=== PATIENT | female | born 1995 | race Caucasian/White ===

== ENCOUNTER 2021-12-06 13:38 | Emergency (ER) | payer MEDICAID, SELFPAY ==
[2021-12-06 14:20] VITALS: BP 125/68; PULSE 90; RESP 16; TEMP 36.8; O2SAT 100; BMI 27.1
--- NOTE | 2021-12-06 14:48 | ED.ABDPAIN ---
HPI - Abdominal Pain General Chief Complaint: Abdominal Pain Stated Complaint: Abdominal Cramping Time Seen by Provider: 12/06/21 14:18 History of Present Illness HPI narrative: This 26-year-old female comes in with left-sided abdominal pain that began today. She had some more mild pain and then it eased up and then her pain was very severe such that she had to leave work. She is almost 6 weeks . She denies having any uterine cramping or vaginal discharge. She did have a miscarriage 3 months ago. She denies any personal history of kidney stones but states that she has strong family history with most members of her family having them. She does report some flank pain on the left side. Her abdominal pain does extend more toward her umbilical area. She had some nausea but no vomiting. The nausea is also present as she is . Related Data Home Medications Medication Instructions Recorded Confirmed ctagbwwl-lej-Wk-FA 1 mg 1 tab PO DAILY 12/06/21 12/06/21 tablet Previous Rx's Medication Instructions Recorded ketorolac 10 mg tablet 10 mg PO TID 5 Days #15 tab 12/06/21 pantoprazole 20 mg tablet,delayed 20 mg PO DAILY #20 tab 12/06/21 release (Protonix) Allergies Allergy/AdvReac Type Severity Reaction Status Date / Time No Known Drug Allergies Allergy Verified 12/06/21 14:16 Review of Systems Status of ROS Reports: 10 or more systems reviewed and unremarkable except as noted in History and below Narrative Constitutional: No fevers, no weight gain or loss. Eyes: No discharge. No vision changes. HENT: No congestion, no sore throat, no ear pain. Cardiovascular: No chest pain, no palpitations. Respiratory: No shortness of breath, no wheezes, no cough. Gastrointestinal: No vomiting, no diarrhea. Abdominal pain as described above Genitourinary: No dysuria, no hematuria. Musculoskeletal: Normal range of motion. Skin: No rashes, no pruritis. Neurological: No dizziness, weakness, sensory change, speech change. Endo/Heme/Allergies: No bruising or bleeding. No polydipsia. Pysch: no suicidality, no anxiety, no insomnia. All other systems reviewed and are negative. Exam Narrative: Exam Narrative: Constitutional: Well-developed, well-nourished, no acute distress. HEENT: Normocephalic, atraumatic. Neck: Normal range of motion. Nontender. Supple. Heart: Regular. No murmurs. Normal rate. Intact distal pulses. Lungs: Clear to auscultation. No chest discomfort. No wheezes, rhonchi, or rales. Abdomen: Normal bowel sounds. Tenderness on the left side of the abdomen. The pain is somewhat reproducible with palpation. No rebound tenderness. She has some left flank pain also. Genitalia: Deferred. Back: No midline tenderness. Normal range of motion. Extremities: Normal range of motion. No injury. Skin: Intact. No rash. Warm. No erythema or pallor. Neurologic: No altered sensation. No weakness. Alert and oriented. Psychiatric: No suicidality. No anxiety or depression. No insomnia. Nursing notes and vitals signs are reviewed. Const: Vital Signs, click to edit/add: Vital Signs - 24 hr 12/06/21 14:20 Temperature 98.2 F Pulse Rate [Pulse Oximeter] 90 Respiratory Rate 16 [facility] 125/68 Pulse Oximetry 100 Course Vital Signs Vital signs: Initial Vital Signs Temperature 98.2 F 12/06/21 14:20 Temperature Source Temporal Artery Scan 12/06/21 14:20 Pulse Rate 90 12/06/21 14:20 Pulse Rhythm 12/06/21 14:20 Pulse Strength 3+ Normal 12/06/21 14:20 Respiratory Rate 16 12/06/21 14:20 Blood Pressure 125/68 12/06/21 14:20 Blood Pressure Mean 87 12/06/21 14:20 Blood Pressure Position Sitting 12/06/21 14:20 Pulse Oximetry 100 12/06/21 14:20 Oxygen Delivery Method 12/06/21 14:20 Vital Signs Temperature 98.2 F 12/06/21 14:20 Pulse Rate 90 12/06/21 14:20 Respiratory Rate 16 12/06/21 14:20 Blood Pressure 125/68 12/06/21 14:20 Pulse Oximetry 100 12/06/21 14:20 Temperature 98.2 F 12/06/21 14:20 Pulse Rate 90 12/06/21 14:20 Respiratory Rate 16 12/06/21 14:20 Blood Pressure 125/68 12/06/21 14:20 Pulse Oximetry 100 12/06/21 14:20 MDM - Abdominal Pain MDM Narrative Medical decision making narrative: This patient comes in reporting abdominal pain in the left and mid abdomen as described above. She is 6 weeks and loss and not a good candidate for x-ray or CT imaging. However her exam is not so suspicious for an acute abdomen. Her pain is fluctuating and she does not have any rebound tenderness. Urinalysis shows no sign of infection and there is no microscopic hematuria. She does have strong family history of kidney stones but no personal history of such. There is no microscopic hematuria today and an unofficial bedside ultrasound of the left kidney appears normal. The patient is reassured enough with these results. She does report some moderate to moderate severe abdominal pain yet at this time. She did receive a prescription for Protonix and Toradol. I advised her to return if not improving or worsening symptoms happen. Lab Data Labs: Lab Results 12/06/21 Range/Units 14:47 Urine Color Yellow (Yellow) Urine Appearance Clear (Clear) Urine pH 6.0 (5.0-8.5) Ur Specific [place] >= 1.030 (1.000-1.030) Urine Protein Negative (Negative) Urine Glucose (UA) Negative (Negative) Urine Ketones Negative (Negative) Urine Blood Negative (Negative) Urine Nitrite Negative (Negative) Urine Bilirubin Negative (Negative) Urine Urobilinogen 1.0 (0.2-1.0) Ur Leukocyte Esterase Negative (Negative) Urine RBC 0-2 (0-2) Urine WBC 2-5 (0-5) Ur Squamous Epith Cells Moderate A (None-Few) Urine Bacteria Moderate A (None) Discharge Plan Discharge Clinical Impression: Abdominal pain Condition: Stable Instructions: Abdominal Pain in (ED) Prescriptions: New pantoprazole [Protonix] 20 mg tablet,delayed release (DR/EC) 20 mg PO DAILY Qty: 20 2RF ketorolac 10 mg tablet 10 mg PO TID 5 Days Qty: 15 0RF No Action wsnpgnsr-ttt-Qv-FA 1 mg tablet 1 tab PO DAILY 0RF Follow Up/Referrals: Brandon Nj PA-C [Primary Care Provider] - Stand Alone Forms: MyHealth Info Instructions
[2021-12-06 15:49] LABS: Appearance Urine Clear (Clear); Bilirubin Urine Negative (Negative); Blood Urine Negative (Negative); Color Urine Yellow (Yellow); Glucose Urine Negative (Negative); Ketones Urine Negative (Negative); Leukocyte Esterase Urine Negative (Negative); Nitrite Urine Negative (Negative); Protein Urine Negative (Negative); Specific Gravity Urine >= 1.030 (1.000-1.030)
[2021-12-06 16:09] LABS: Bacteria Urine Moderate; RBC Urine 0-2 (0-2); Squamous Epithelial Cell Urine Moderate (None-Few)
--- NOTE | 2021-12-06 16:25 | PC.NURSE ---
Dr Haddad in room
== END 2021-12-06 16:54 | disposition home or self-care (01) ==
PROVIDERS: Emergency Provider Emergency Medicine Emergency Medical Services; PCP Physician Assistant Medical
DX: R10.9 Unspecified abdominal pain (principal)
CPT/HCPCS: 81001; 87086; 99283; 99284

== ENCOUNTER 2021-12-30 12:51 | Outpatient (CLI) | payer MEDICAID, SELFPAY ==
--- NOTE | 2021-12-30 13:00 | CRLHL7_ITS ---
For Patients: As a result of the Century Cures Act, medical imaging exams and procedure reports are released immediately into your electronic medical record. You may view this report before your referring provider. If you have questions, please contact your health care provider. INDICATION: First trimester scan, establish dates. COMPARISON: None. TECHNIQUE: Real-time galeano-scale imaging of the pelvis was performed. FINDINGS: Sonographic imaging demonstrates a single living intrauterine gestation. The embryo demonstrates a regular cardiac rate measuring 171 beats per minute. The embryo`s crown-rump length measurement of 2.7 cm corresponds to a gestational age of 9 weeks 4 days with a sonographic due date of 07/31/2022. There is a normal-appearing yolk sac. There are no gross abnormalities noted within the embryo at this early state of development. The gestational sac has a normal appearance. There is a 3.5 x 2.9 x 3.7 cm perigestational hemorrhage. The amount of fluid within the sac appears appropriate for gestational age. The cervix is closed. The myometrium appears normal. The ovaries are of normal size. Corpus luteal cyst left ovary. There are no suspicious fluid collections noted in the cul-de-sac. IMPRESSION: Gestational age calculated at 9 weeks 4 days with a sonographic due date of 07/31/2022. Right-sided subchorionic hemorrhage measuring 3.5 x 2.9 x 3.7 cm. Dictated by Ruperto Shirley MD @ 12/30/2021 1:49:14 PM (Electronically Signed)
== END 2021-12-30 12:52 | disposition home or self-care (01) ==
PROVIDERS: PCP Physician Assistant Medical; Visit Provider Physician Assistant
DX: Z34.91 Encounter for supervision of normal pregnancy, unspecified, first trimester (principal); O20.9 Hemorrhage in early pregnancy, unspecified; Z3A.09 9 weeks gestation of pregnancy
CPT/HCPCS: 76801

== ENCOUNTER 2021-12-30 14:29 | Outpatient (CLI) | payer MEDICAID, SELFPAY ==
[2021-12-30 17:55] LABS: Hepatitis B Surface Antigen* Negative (Negative)
[2021-12-30 18:05] LABS: HIV 1/2/P24 Combo Screen* Negative (Negative)
[2021-12-30 18:12] LABS: Hepatitis C Virus Antibody* Negative (Negative)
[2021-12-30 18:44] LABS: Chlamydia DNA Amplified* NOT DETECTED (No Detected); GC DNA Amplified* NOT DETECTED (No Detected)
[2022-01-01 23:15] LABS: Rapid Plasma Reagin (RPR) Non Reactive (Non Reactive)
[2022-01-01 23:40] LABS: Varicella-Zoster Virus Ab, IgG < 10.0 IV
[2022-01-01 23:44] LABS: Rubella Antibody IgG 29.4 IU/mL
== END 2021-12-30 14:30 | disposition home or self-care (01) ==
PROVIDERS: PCP Physician Assistant Medical; Visit Provider Physician Assistant
DX: Z34.91 Encounter for supervision of normal pregnancy, unspecified, first trimester (principal)
CPT/HCPCS: 86592; 86703; 86762; 86787; 86803; 86850; 86900; 86901; 87086; 87340; 87491; 87591; 88174

== ENCOUNTER 2022-03-14 12:57 | Outpatient (CLI) | payer MEDICAID, SELFPAY ==
--- NOTE | 2022-03-14 13:00 | CRLHL7_ITS ---
For Patients: As a result of the Century Cures Act, medical imaging exams and procedure reports are released immediately into your electronic medical record. You may view this report before your referring provider. If you have questions, please contact your health care provider. INDICATION: 2nd trimester anatomical survey. TECHNIQUE: Ultrasound OB pelvis transabdominal. Real-time galeano-scale imaging of the fetus was performed as well as color Doppler and spectral Doppler analysis of the umbilical artery. COMPARISON: None. FINDINGS: Sonographic imaging demonstrates a single living intrauterine gestation. Fetus demonstrates a regular cardiac rate of 146 beats per minute. Fetus has a multiple orientations. The placenta lies posterior without evidence of placenta previa. Placenta tip to internal os measures 3.1 cm. Placenta cord insertion is a centric 3.3 cm from superior edge. Amniotic fluid volume appears normal. Single deepest pocket measures 4.8 cm. Length of the closed cervix is 3.8 cm. Biometry: Biparietal diameter: 4.2 cm, 18 week 5 day, 10th percentile. Head circumference: 16.6 cm, 19 week 2 day, 17th percentile. Abdominal circumference: 14.4 cm, 19 week 5 day, 41st percentile. Femoral length: 3.4 cm, 20 week 4 day, 66th percentile. The composite ultrasound gestational age is calculated at 19 week 5 day with an estimated sonographic due date of 08/03/2022. The weight is estimated at 325 grams, the 52 percentile. On anatomic survey, there is a normal appearance of the cerebral ventricles, cisterna magna and cerebellum. The nose, lips, and facial profile appear normal. The cervical, thoracic and lumbar spines are well visualized and appear normal. There is a normal four-chamber heart and the left and right ventricular outflow tracts appear normal. diaphragm, stomach, kidneys and bladder appear normal. There is a normal three-vessel cord and cord insertion site. The four extremities appear normal. IMPRESSION: 1.Single viable intrauterine . 2.No intrinsic abnormalities noted on anatomic survey. Dictated by Timothy Montgomery MD @ 03/14/2022 8:10:18 PM (Electronically Signed)
--- OUTSIDE RECORDS SUMMARY | 2022-03-14 13:14 | XMS_ITS | Encounter Summary ---
:1995 Author Organization [facility] Address [facility] [place] [address] Care Team Providers Name Role Phone [facility]- Reason for Visit Reason Comments Post-op Problem Encounter Details Date Type Department Care Team Description 08/13/2020 Emergency [facility] Frank Montoya B leeding from [facility] Emergency Dep t [address] [facility] [place] [id number] [id number] [facility] [phone] [place], [place] [address] (Wo rk) Social History Tobacco Use Types Packs/Day Years Used Date Smoking Tobacco: Never Assessed Sex Assigned at Date Recorded Not on file documented as of this encounter Last Filed Vital Signs Vital Sign Reading Time Taken Comments Blood Pressure 134/90 08/13/2020 3:24 AM CDT Pulse 95 08/13/2020 3:24 AM CDT Temperature 36.9 ??C (98.4 ??F) 08/13/2020 3:24 AM CDT Respiratory Rate 20 08/13/2020 3:24 AM CDT Oxygen Saturation 99% 08/13/2020 4:45 AM CDT Inhaled Oxygen Concentration - - Weight - - Height - - Body Mass Index - - documented in this encounter Discharge Instructions AttachmentsThe following attachments cannot be sent through Care Everywhere.Post Op Wound Check, Bleeding (Serbian)documented in this encounter ED Notes Tanja Fountain RN - 08/13/2020 3:16 AM CDT Patient arrives via EMS from home. Had procedure at [facility] today. Started bleeding around 1am when she was attempting to remove gauze and wound did not stop bleeding. Gauze is soaked through in rectal area Td Tovar RN - 08/13/2020 3:15 AM CDT Bed: ED13 Expected date: 08/13/20 Expected time: 3:02 AM Means of arrival: Comments: BV2 24F Frank Montoya MD - 08/13/2020 3:15 AM CDT Images from the original note were not included. History Chief Complaint: Post-op Problem The history is provided by the patient. A painter aircraft was used (Serbian). Candida Lau is a 24 year old female who presents for evaluation of post-op bleeding. The patient had a procedure for removal of her pilonidal cyst at [facility] at 1300 yesterday afternoon. Her pain has been well-controlled with her prescribed oxycodone. Around 0100 this morning, she was changing the dressing on her surgical site. This was painful and caused bleeding at hersurgical site which has persisted. Given the persistence of bleeding, she decided to present. Here, she denies any current pain. Review of Systems Skin: Positive for wound (low back). All other systems reviewed and are negative. Allergies: No Known Drug Allergies Medications: The patient is not currently taking any prescribed medications. Medical History: History reviewed. The patient denies any medical history. Surgical History: Pilonidal cyst removal Social History: The patient was accompanied to the ED by EMS. The patient speaks Serbian. Physical Exam Patient Vitals for the past 24 hrs: BP Temp Temp src Pulse Resp SpO2 08/13/20 0324 (!) 134/90 98.4 ??F (36.9 ??C) Oral 95 20 100 % Physical Exam Skin: Neck: Supple, no meningismus. CV: No lower extremity edema. PULM: No respiratory distress. No stridor. MSK: No gross deformity to all four extremities. LYMPH: No cervical lymphadenopathy. NEURO: Alert, good muscular tone, no atrophy. Skin: Warm, dry Psych: Mood is good and affect is appropriate. Emergency Department Course Procedures Electric Cautery PROCEDURE NOTE: The location of the patient's bleeding was identified. Lidocaine 1% with epinephrine, 10 mLs was used for local anesthesia. The area was electrically cauterized. The patient tolerated the procedure well and there were no complications. She was observed in the emergency department following the procedure and had no recurrence of his bleeding. TXA-soaked gauze was also placed over the wound and ultimately the wound was covered in SurgiCell and dressed appropriately. Emergency Department Course: Reviewed: I reviewed the patient's nursing notes, vitals, past medical records, Care Everywhere. Assessments: 0320 I performed an exam of the patient, as documented above. 0327 I performed cautery of the patient's wound, as noted above. 0400 I rechecked the patient and exchanged the TXA for surgicell. Bleeding is still stopped. Disposition: The patient was discharged to home. Impression & Plan Medical Decision Makin-year-old female seen with bleeding from her wound after pilonidal cyst resection site. My suspicion is that she had a clot that was disrupted after she removed one of the dressings. There is brisk venous bleeding in which we achieved hemostasis with injection of lidocaine with epinephrine and electr ocautery. To prevent further re-bleeding, tranexamic acid was applied followed by Surgifoam. Generalwound care instructions given. Patient to follow-up with primary surgeon or return to ED for any worsening symptoms. Diagnosis: ICD-10-CM 1. Bleeding from wound T14.8XXA Scribe Disclosure: Amna Sanabria, am serving as a scribe at 3:23 AM on 08/13/2020 to document services personally performed by Frank Montoya MD based on my observations and the provider's statements to me. Frank Montoya MD 08/16/202015 documented in this encounter Plan of Treatment Not on filedocumented as of this encounter Visit Diagnoses Diagnosis Bleeding from wound Secondary and recurrent hemorrhage as an early complication of trauma documented in this encounter Active and Recently Administered Medications Times are shown in CDT. Scheduled Medication Order 08/11/2020 08/12/2020 08/13/2020 tranexamic acid (CYKLOKAPRON) TOPICAL (injection used topically) 0335 (Canceled Entry - Provider: Orders Generic Provider - Comment: Automatically canceled at discontinue of medication order) Topical, ONCE, 08/13/20 at 0335, For 1 dose, Withdraw solution from vial or ampule and apply topically using gauze. EXTERNAL USE. documented in this encounter Care Teams Lidar Analyst Relationship Specialty Start Date End Date [facility] And PCP - General 08/13/20 [facility] [address] [place] [address] documented as of this encounter
--- OUTSIDE RECORDS SUMMARY | 2022-03-14 13:14 | XMS_ITS | Clinical Summary ---
:1995 Author Organization [facility] Address [facility], [id number] [place] [address] Care Team Providers Name Role Phone [facility]- Allergies No known active allergies Social History Tobacco Use Types Packs/Day Years Used Date Smoking Tobacco: Never Assessed Sex Assigned at Date Recorded Not on file Last Filed Vital Signs Vital Sign Reading Time Taken Comments Blood Pressure 134/90 08/13/2020 3:24 AM CDT Pulse 95 08/13/2020 3:24 AM CDT Temperature 36.9 ??C (98.4 ??F) 08/13/2020 3:24 AM CDT Respiratory Rate 20 08/13/2020 3:24 AM CDT Oxygen Saturation 99% 08/13/2020 4:45 AM CDT Inhaled Oxygen Concentration - - Weight - - Height - - Body Mass Index - - Plan of Treatment Health Maintenance Due Date Last Done Comments ADVANCE CARE PLANNING 1993 ANNUAL REVIEW OF HM ORDERS 1993 HEPATITIS B IMMUNIZATION (1 of 3 - 1993 3-dose series) YEARLY PREVENTIVE VISIT 1993 COVID-19 Vaccine (#1) 04/02/1994 HIV SCREENING 2008 HEPATITIS C SCREENING 10/01/2011 PAP 2014 DTAP/TDAP/TD IMMUNIZATION (1 - 2018 Tdap) PHQ-2 (once per calendar year) 2021 INFLUENZA VACCINE (#1) 2022 IPV IMMUNIZATION Aged Out No longer eligi ble based on patient's age to complete this topic MENINGITIS IMMUNIZATION Aged Out No longe r eligible based on patient's age to complete this topic Pneumococcal Vaccine: Pediatrics Aged Out No longer eligible based on (0 to 5 Years) and At-Risk patie nt's age to complete this Patients (6 to 64 Years) topic Insurance Payer Benefit Plan / Subscriber ID Effective Phone Address T ype Group Dates [facility] [id number] 2018-Pre [phone] [address] [facility] sent [address] [place] [address] Care Teams [employer] Scientific Aid Relationship Specialty Start Date End Date [facility] And PCP - General 08/13/20 [facility] [address] [place] [address]
== END 2022-03-14 12:58 | disposition home or self-care (01) ==
LOC: US 12:57
PROVIDERS: PCP Physician Assistant Medical; Visit Provider Obstetrics & Gynecology
DX: Z34.92 Encounter for supervision of normal pregnancy, unspecified, second trimester (principal); Z3A.19 19 weeks gestation of pregnancy
CPT/HCPCS: 76805

== ENCOUNTER 2022-05-05 12:02 | Emergency (ER) | payer MEDICAID, SELFPAY ==
[2022-05-05 12:09] VITALS: BP 133/80; PULSE 124; TEMP 36.7; O2SAT 99
[2022-05-05 12:25] VITALS: PULSE 122; O2SAT 98
--- NOTE | 2022-05-05 12:34 | ED_ITS ---
HPI - General Adult General Chief complaint: Shortness of Breath/Dyspnea Stated complaint: 27 wks /cough/shortness of breath/fever Time Seen by Provider: 05/05/22 12:07 History of Present Illness HPI narrative: This 26-year-old female comes in reporting upper respiratory symptoms that began early this morning. She arrives with some tachycardia and reports cough and nasal congestion. She also has generalized body aches and pains. She is afebrile on arrival. She does report a subjective fever. She is Macedonian- speaking but does understand some anguish. An outpatient program coordinator service was employed to assist in this process. Her son has influenza A. She is 27 weeks . Related Data Home Medications Medication Instructions Recorded Confirmed dufyzgip-szt-Af-FA 1 mg 1 tab PO DAILY 12/06/21 04/17/22 tablet Previous Rx's Medication Instructions Recorded PNV 153-FA 400 mcg-om3 35 mg-dha 1 tab PO DAILY #90 tabs 02/21/22 25 mg-epa 5 mg-fish oil chew tablet ( Gummies) oseltamivir 75 mg capsule (Tamiflu) 75 mg PO BID 5 days #10 caps 05/05/22 Allergies Allergy/AdvReac Type Severity Reaction Status Date / Time No Known Drug Allergies Allergy Verified 04/17/22 14:01 Review of Systems Status of ROS: Reports: 10 or more systems reviewed and unremarkable except as noted in History and below Narrative: Constitutional: No weight gain or loss. Eyes: No discharge. No vision changes. HENT: Nasal congestion, no ear pain. Cardiovascular: No chest pain, no palpitations. Respiratory: No shortness of breath, no wheezes. She reports a cough. Gastrointestinal: No abdominal pain, no vomiting, no diarrhea. Genitourinary: No dysuria, no hematuria. Musculoskeletal: Normal range of motion. Skin: No rashes, no pruritis. Neurological: No dizziness, weakness, sensory change, speech change. Endo/Heme/Allergies: No bruising or bleeding. No polydipsia. Pysch: no suicidality, no anxiety, no insomnia. All other systems reviewed and are negative. 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 Nonsmoker no alcohol use Smoking Status: Never smoker How often do you have a drink containing alcohol: never AUDIT-C Alcohol total score: 0 Non-prescribed substance use: denies use Little interest or pleasure in doing things: several days Feeling down, depressed, or hopeless: not at all service: No Exam Narrative: Exam Narrative: Constitutional: Well-developed, well-nourished, no acute distress. HEENT: Normocephalic, atraumatic. Neck: Normal range of motion. Nontender. Supple. Heart: Regular. No murmurs. Tachycardia. Rate around 120 beats per minute. Intact distal pulses. Lungs: Clear to auscultation. No chest discomfort. No wheezes, rhonchi, or rales. Abdomen: Normal bowel sounds. Nontender. No rebound tenderness. Gravid. Genitalia: Deferred. Back: No midline tenderness. Normal range of motion. Extremities: Normal range of motion. No injury. Skin: Intact. No rash. Warm. No erythema or pallor. Neurologic: No altered sensation. No weakness. Alert and oriented. Psychiatric: No suicidality. No anxiety or depression. No insomnia. Nursing notes and vitals signs are reviewed. Const: Vital Signs, click to edit/add: Vital Signs - 24 hr 05/05/22 12:09 05/05/22 12:25 05/05/22 13:08 Temperature 98.1 F Pulse Rate [Left P ulse Oximeter] 124 H 122 H 109 H Blood Pressure [Ri ght Upper Arm] 133/80 Pulse Oximetry 99 98 98 Oxygen Delivery Me thod Room Air Room Air Room Air 05/05/22 13:56 Temperature Pulse Rate [Left P ulse Oximeter] 106 H Blood Pressure [Ri ght Upper Arm] Pulse Oximetry 100 Oxygen Delivery Me thod Room Air Course Vital Signs Vital signs: Initial Vital Signs Temperature 98.1 F 05/05/22 12:09 Temperature Source Temporal Artery Scan 05/05/22 12:09 Pulse Rate 124 H 05/05/22 12:09 Blood Pressure 133/80 05/05/22 12:09 Blood Pressure Mean 97 05/05/22 12:09 Blood Pressure Position Sitting 05/05/22 12:09 Pulse Oximetry 99 05/05/22 12:09 Oxygen Delivery Method 05/05/22 12:09 Vital Signs Temperature 98.1 F 05/05/22 12:09 Pulse Rate 124 H 05/05/22 12:09 Blood Pressure 133/80 05/05/22 12:09 Pulse Oximetry 99 05/05/22 12:09 Oxygen Delivery Method 05/05/22 12:09 Temperature 98.1 F 05/05/22 12:09 Pulse Rate 106 H 05/05/22 13:56 Blood Pressure 133/80 05/05/22 12:09 Pulse Oximetry 100 05/05/22 13:56 Oxygen Delivery Method 05/05/22 13:56 Medical Decision Making MDM Narrative Medical decision making narrative: This patient comes in with upper respiratory symptoms as described above. Testing turns positive for influenza A. The patient is a candidate for Tamiflu. This prescription is provided for her and she is encouraged to use smlh-olk-scysgff medicines also as needed and directed. Lab Data Labs: Lab Results 05/05/22 Range/Units 12:33 SARS-CoV-2 (PCR) Negative SARS-CoV-2 (Negative) Influenza Type A (PCR) POSITIVE PCR FLU A A (Negative) Influenza Type B (PCR) Negative PCR FLU B (Negative) RSV (PCR) Negative PCR RSV (Negative) Discharge Plan Discharge Clinical Impression: Influenza A Patient Disposition: Home, Self-Care Condition: Unchanged Additional Instructions: Take medication as prescribed. Follow up with MD or return if worsening. Prescriptions: New oseltamivir [Tamiflu] 75 mg capsule 75 mg PO BID 5 Days Qty: 10 0RF No Action Gummies 400 mcg-35 mg- 25 mg-5 mg tablet,chewable 1 tab PO DAILY Qty: 90 0RF htxukohk-bje-Ta-FA 1 mg tablet 1 tab PO DAILY Follow Up/Referrals: Brandon Nj PA-C [Primary Care Provider] - Stand Alone Forms: MyHealth Info Instructions
[2022-05-05 13:08] VITALS: PULSE 109; O2SAT 98
[2022-05-05 13:29] LABS: PCR FLU A POSITIVE PCR FLU A (Negative); PCR FLU B Negative PCR FLU B (Negative); PCR RSV Negative PCR RSV (Negative)
[2022-05-05 13:36] LABS: SARS PCR* Negative SARS-CoV-2 (Negative)
[2022-05-05 13:56] VITALS: PULSE 106; O2SAT 100
== END 2022-05-05 14:15 | disposition home or self-care (01) ==
PROVIDERS: Emergency Provider Emergency Medicine Emergency Medical Services; PCP Physician Assistant Medical
DX: J09.X2 Influenza due to identified novel influenza A virus with other respiratory manifestations (principal); Z3A.24 24 weeks gestation of pregnancy
CPT/HCPCS: 87502; 87634; 87635; 99283; 99284

== ENCOUNTER 2022-05-18 13:33 | Outpatient (CLI) | payer MEDICAID, SELFPAY ==
[2022-05-19 22:46] LABS: Rapid Plasma Reagin (RPR) Non Reactive (Non Reactive)
== END 2022-05-18 13:34 | disposition home or self-care (01) ==
PROVIDERS: PCP Physician Assistant Medical; Visit Provider Obstetrics & Gynecology
DX: Z34.93 Encounter for supervision of normal pregnancy, unspecified, third trimester (principal); O99.013 Anemia complicating pregnancy, third trimester; D63.8 Anemia in other chronic diseases classified elsewhere; Z3A.29 29 weeks gestation of pregnancy
CPT/HCPCS: 86592

== ENCOUNTER 2022-05-30 14:13 | Outpatient (CLI) | payer MEDICAID, SELFPAY | END 2022-05-30 14:14 | disposition home or self-care (01) | LOC: NFLDREF 14:14 | PROVIDERS: PCP Physician Assistant Medical; Visit Provider Obstetrics & Gynecology | DX: R30.0 Dysuria (principal) | CPT/HCPCS: 87086 ==

== ENCOUNTER 2022-06-27 14:32 | Outpatient (CLI) | payer MEDICAID, SELFPAY ==
--- NOTE | 2022-06-27 14:00 | CRLHL7_ITS ---
For Patients: As a result of the Century Cures Act, medical imaging exams and procedure reports are released immediately into your electronic medical record. You may view this report before your referring provider. If you have questions, please contact your health care provider. INDICATION: BPP/GROWTH. non-reactive NST TECHNIQUE: Real time galeano scale imaging of the fetus was performed. COMPARISON: 03/14/2022 FINDINGS: Sonographic imaging demonstrates a single living intrauterine gestation. Fetus demonstrates a regular cardiac rate of 143 beats per minute. Fetus has a vertex position. The placenta lies posteriorly. Amniotic fluid volume appears normal and there is a single deepest pocket of 7.0 cm. The estimated weight is 2582gm which lies at the 52nd %. On the prior OB ultrasound dated 03/14/2022 the estimated weight was at the 52nd percentile. BPD 9th percentile. HC 37th percentile. AC 78th percentile. FL 31st percentile. The fetus was active and demonstrated normal breathing movements. There was normal flexion and extension of the trunk and extremities. IMPRESSION: Normal biophysical profile score 8/8. Sonographic gestational age 34 weeks 5 days and sonographic due date 08/03/2022. Good correlation with dates. Normal interval growth. Estimated weight 52nd percentile. Abdominal circumference 78th percentile. Dictated by Ruperto Shirley MD @ 06/28/2022 12:36:25 PM (Electronically Signed)
== END 2022-06-27 14:33 | disposition home or self-care (01) ==
LOC: US 14:32
PROVIDERS: PCP Physician Assistant Medical; Visit Provider Obstetrics & Gynecology
DX: Z34.93 Encounter for supervision of normal pregnancy, unspecified, third trimester (principal); Z3A.34 34 weeks gestation of pregnancy
CPT/HCPCS: 76816; 76819

== ENCOUNTER 2022-07-05 14:48 | Outpatient (CLI) | payer MEDICAID, SELFPAY ==
[2022-07-06 16:38] LABS: Strep B DNA Probe NEGATIVE (Negative)
[2022-07-08 03:32] LABS: Strep B Pen/Amox Allergy No
== END 2022-07-05 14:49 | disposition home or self-care (01) ==
LOC: NFLDREF 14:49
PROVIDERS: PCP Physician Assistant Medical; Visit Provider Obstetrics & Gynecology
DX: Z34.93 Encounter for supervision of normal pregnancy, unspecified, third trimester (principal); Z3A.36 36 weeks gestation of pregnancy
CPT/HCPCS: 87081; 87653

== ENCOUNTER 2022-07-17 11:30 | Outpatient (RCR) | payer MEDICAID, SELFPAY ==
--- NOTE | 2022-06-29 13:51 | ONC.NURNOTE ---
Dx: Iron Deficiency Anemia in
--- NOTE | 2022-06-29 14:12 | URNOTE ---
Request received for authorization for Oscar ([id number]). Prior authorization is not required per [facility] Rep. Charleen on 06/29/2022 [id number].
[2022-07-05 09:45] VITALS: BP 131/81; PULSE 100; RESP 16; TEMP 36.6; O2SAT 99
[2022-07-05] MEDS: IRON SUCROSE COMPLEX 200 MG in 0.9 % SODIUM CHLORIDE 100 ml 100 ML 440 MG IVPB (10:07)
[2022-07-05] MEDS: SODIUM CHLORIDE 0.9 % (FLUSH) 10 ML SYRINGE IVF (10:12)
[2022-07-05] MEDS: 0.9 % SODIUM CHLORIDE 250 ml IV (10:12)
[2022-07-05 10:28] VITALS: BP 120/76; PULSE 102
[2022-07-07 11:05] VITALS: BP 124/80; PULSE 111; RESP 16; TEMP 37; O2SAT 98
[2022-07-07] MEDS: 0.9 % SODIUM CHLORIDE 250 ml IV (11:18)
[2022-07-07] MEDS: IRON SUCROSE COMPLEX 200 MG in 0.9 % SODIUM CHLORIDE 100 ml 100 ML 440 MG IVPB (11:18)
[2022-07-07] MEDS: SODIUM CHLORIDE 0.9 % (FLUSH) 10 ML SYRINGE IVF (11:19)
[2022-07-10 10:41] VITALS: BP 128/79; PULSE 99; RESP 16; TEMP 36.4; O2SAT 97
[2022-07-10] MEDS: 0.9 % SODIUM CHLORIDE 250 ml IV (11:13)
[2022-07-10] MEDS: IRON SUCROSE COMPLEX 200 MG in 0.9 % SODIUM CHLORIDE 100 ml 100 ML 440 MG IVPB (11:40)
[2022-07-10 12:07] VITALS: BP 117/71; PULSE 87; TEMP 36.9; O2SAT 97
[2022-07-10 12:40] VITALS: BP 127/80; PULSE 88; RESP 16; TEMP 36.4; O2SAT 97
[2022-07-14 11:00] VITALS: BP 144/80; PULSE 98; RESP 16; TEMP 36.6; O2SAT 98
[2022-07-14] MEDS: IRON SUCROSE COMPLEX 200 MG in 0.9 % SODIUM CHLORIDE 100 ml 100 ML 440 MG IVPB (11:21)
[2022-07-14 11:40] VITALS: BP 119/78; PULSE 87; RESP 16; TEMP 36.7; O2SAT 98
[2022-07-14 12:05] VITALS: BP 122/78; PULSE 90; RESP 16; TEMP 36.7; O2SAT 98
[2022-07-17 11:30] VITALS: BP 125/81; PULSE 92; RESP 14; TEMP 36.1; O2SAT 99
[2022-07-17] MEDS: IRON SUCROSE COMPLEX 200 MG in 0.9 % SODIUM CHLORIDE 100 ml 100 ML 440 MG IVPB (12:04)
[2022-07-17] MEDS: 0.9 % SODIUM CHLORIDE 250 ml IV (12:05)
[2022-07-17] MEDS: SODIUM CHLORIDE 0.9 % (FLUSH) 10 ML SYRINGE IVF (12:05)
== END 2023-01-01 23:59 | disposition home or self-care (01) ==
LOC: CCIC 11:30
PROVIDERS: PCP Physician Assistant Medical; Referring Provider Physician Assistant Medical; Visit Provider Obstetrics & Gynecology
DX: D64.9 Anemia, unspecified (principal)
CPT/HCPCS: 96365; T1013; J1756; J7050

== ENCOUNTER 2022-07-25 12:16 | Outpatient (CLI) | payer MEDICAID, SELFPAY ==
--- NOTE | 2022-07-25 12:17 | CRLHL7_ITS ---
For Patients: As a result of the Cures Act, medical imaging exams and procedure reports are released immediately into your electronic medical record. You may view this report before your referring provider. If you have questions, please contact your health care provider. INDICATION: , asymmetric swelling lower extremity COMPARISON: none TECHNIQUE: A compression venous ultrasound exam was performed of both lower extremities using galeano scale imaging, color Doppler and spectral Doppler analysis. FINDINGS: Sonographic imaging of the lower extremities demonstrates normal compressibility and color Doppler venous blood flow within the common femoral, deep femoral, and proximal greater saphenous veins. Within the thighs the femoral veins are patent and compressible. At a lower level the popliteal and posterior tibial veins also show normal compressibility and color Doppler venous blood flow. IMPRESSION: Normal venous ultrasound exam. No evidence of deep vein thrombosis within either the left or right lower extremity. Dictated by Ruperto Shirley MD @ 07/25/2022 1:31:20 PM (Electronically Signed)
== END 2022-07-25 12:17 | disposition home or self-care (01) ==
LOC: US 12:17
PROVIDERS: PCP Physician Assistant Medical; Visit Provider Obstetrics & Gynecology
DX: O26.899 Other specified pregnancy related conditions, unspecified trimester (principal); R22.43 Localized swelling, mass and lump, lower limb, bilateral; Z3A.00 Weeks of gestation of pregnancy not specified
CPT/HCPCS: 93970; T1013

== ENCOUNTER 2022-07-28 07:40 | Inpatient (IN) | payer MEDICAID, SELFPAY ==
[2022-07-28] VITALS (19 sets, daily range): BP systolic 122–146; BP diastolic 56–92; PULSE 80–103; RESP 18; TEMP 36.8–37.1; O2SAT 96–97; BMI 35.6
--- NOTE | 2022-07-28 08:05 | P.LDBA_ITS ---
Subjective History of Present Illness Time Seen by Provider: 09:07 Date Seen: 07/28/22 Narrative: Patient is being admitted to Labor and Delivery for elective IOL. She is a 26 year old at 39 2/7weeks gestation. Her full history and physical was dictated by Dr. STRANGE on 07/11/22. Please see this for details. Patient states that since this morning she has been feeling more frequent uterine contractions and also had a small amount of bloody show. Comments: H&P by NEETUM on 07/11/22-?CALL CG FOR DELIVERY IOL scheduled for 07/28/22 Specific Issues/Plans O positive 1. 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 Unplanned , but excited.? Uncertain if father of baby will be involved 3.?Varicella nonimmune,? vaccinate 4. Anemia: Hgb at 29 weeks:9.3 -Start Ferrous sulfate BID -Re check hemoglobin at 34 weeks:9.6, patient has been consistent utilizing med BID -Recommend IV iron infusion 06/27/22- completed 5. Lower extremity swelling -More prominent on the right side, lower extremity doppler exam on 07/25/22 negative for DVT bilaterally. COVID vaccine:? Due for booster Flu:? 03/14/22 OB - Problem Based A/P Additional Plan (1) : Status: Acute Plan 1. Start IV oxytocin, AROM when able 2. GBS negative, no need for antibiotics 3. Hx.of anemia, s/p IV iron infusions: Normal admission hemoglobin 4. Pain management as per patient request 5. Expect OB Exam Physical Exam Vital signs: BP:139/81 HR:89 02sat 96 Narrative: Will continue to monitor BPs closely. Detailed Labor and Delivery Exam Patient Gravid: Yes Dilation (cm): 1 Effacement (%): 70 Cervix position: mid Consistency: soft Contraction Frequency: Irregular Tachysystole: No Contraction intensity: Mild Fetus (Single) Station: -2 Amniotic Membrane Status: intact Heart Rate Baseline: 135 Monitor Accelerations: Present Monitor Decelerations: None Project Manager Interior Design Variability: Moderate (6-25)
[2022-07-28 08:52] LABS: Basophils Absolute Auto 0.03 K/uL (0.00-0.30); Basophils Percent Auto 0.3 % (0.0-3.0); Eosinophils Absolute Auto 0.08 K/uL (0.00-0.50); Eosinophils Percent Auto 0.9 % (0.0-7.0); Hematocrit 35.6 % (33.0-51.0); Hemoglobin* 11.4 gm/dL (12.0-16.0); Immature Granulocytes Abs Auto 0.06 K/uL (0.00-0.30); Immature Granulocytes Pct Auto 0.7 %; Mean Corpuscular HGB Conc 32 gm/dL (32-36); Mean Corpuscular Hemoglobin 28 pg (26-34); Mean Corpuscular Volume 86 fL (80-100); Monocytes Percent Auto 8.6 % (0.0-11.0); Neutrophils Percent Auto 73.5 % (42.0-72.0); Platelet Count* 236 K/uL (140-440); RDW Coefficient of Variation % 17.2 % (11.5-15.5); Red Blood Count 4.15 m/uL (4.00-5.20); White Blood Count* 8.81 K/uL (4.50-11.00)
[2022-07-28 08:55] LABS: Slide Review Reflex No
[2022-07-28] MEDS: LACTATED RINGERS 1000 ML 1,000 ML 125 ML IV (09:05)
[2022-07-28] MEDS: OXYTOCIN 30 unit/500 ML in NS 30 UNIT/500 ML BAG IVPB (09:06)
[2022-07-28 09:52] LABS: SARS PCR* Negative SARS-CoV-2 (Negative)
[2022-07-28] MEDS: fentaNYL 100 MCG/2 ML inj IVP ×3 (13:54→15:13)
--- NOTE | 2022-07-28 16:31 | PM.OBPNL ---
Subjective Date Seen: 07/28/22 Objective Vital Signs: Last Vital Signs Temp 98.2 F 07/28/22 16:15 Pulse 85 07/28/22 16:15 BP 131/70 07/28/22 16:15 Pulse Ox 97 07/28/22 16:15 Contractions Contraction intensity: Mild Assessment Station: -2 Heart Rate Baseline: 135 Monitor Accelerations: Present Monitor Decelerations: None
--- NOTE | 2022-07-28 17:06 | W.PM.VAGDEL1 ---
Procedure Delivery date: 07/28/22 Procedure Done: Global Events: Other (Anemia, s/p IV iron infusions) Intrapartal Events: Labor Induction and Precipitous Labor <3 Hrs Delivery augmentation: pitocin Delivery monitor: external FHT Route of delivery: Laceration description: Vaginal - 1st Degree (Not bleeding, not repaired) Estimated blood loss (mL): 15 Anesthesia type: None Disposition: floor Complications: None Narrative: The patient is a 26 year-old G 3 P 2012 admitted on 07/28/2022 at 39 Weeks, 2 Days gestation for elective induction of labor.? Cervical exam on admission was 1.5 cm/70 % effaced/-2 station with membranes intact in vertex presentation.? Contractions were every 5-7 minutes.? heart rate demonstrated baseline 135 bpm with moderate variability, positive accelerations, negative decelerations; a category 1 tracing.? SROM occurred at 1540 with clear fluid. ? Labor Analgesia:? Fentanyl, Nitrous ? Pitocin:? Yes ? Labor onset:? 1500 ? Complete:? 1634 ? Pushing:? 1636 ? heart tones during second stage were category 1. ? At 1642 a viable female delivered in vertex CHA presentation over intact perineum via spontaneous vaginal delivery.? Infant was placed on maternal abdomen.? Cord was clamped and cut after a 30-60 second delay.? Nose and mouth were bulb suctioned.? Infant weight pending.? 8 at 1 minute and 9 at 5 minutes.? Shoulder dystocia: No, patient was pushing w/o uterine contraction and head delivered slowly, placed in [place] but anterior shoulder delivered easily .? Nuchal cord: Yes x1. ? Placenta delivered spontaneously and complete at 1648 with a 3 vessel cord. ? Mother and infant were stable after delivery. ? Lacerations:? Very small vaginal not bleeding and not repaired. ? Blood loss: 15 mL. Blood loss measurement type: QBL ? Sponge and needles counts are correct. [place] Gender: Female presentation: vertex Placental Delivery Description: Spontaneous Cord Description: 3 Vessels and Nuchal Cord (x1) OB Vag Delivery Procedures Additional Procedures ECV: No Cook Catheter Insertion: No NST: Yes D&C: No Laceration Repair: No Tubal Ligation : No Other: No
[2022-07-28] MEDS: ACETAMINOPHEN 500 MG TABLET 1000 MG PO (20:33)
[2022-07-28 21:11] LABS: Mean Corpuscular HGB Conc 32 gm/dL (32-36); Mean Corpuscular Hemoglobin 28 pg (26-34); Mean Corpuscular Volume 86 fL (80-100); Platelet Count* 257 K/uL (140-440); Slide Review Reflex No; White Blood Count* 14.44 K/uL (4.50-11.00)
[2022-07-28 21:25] LABS: Creatinine* 0.4 mg/dL (0.5-1.5); Estimated Glomerular Filt Rate 138 ml/min
[2022-07-28 21:26] LABS: Alanine Aminotransferase* 23 U/L (4-35); Aspartate Amino Transferase* 31 U/L (12-35); Blood Urea Nitrogen* 10 mg/dL (5-24)
[2022-07-29] VITALS: BP 120/73; PULSE 86; RESP 18; TEMP 36.9; O2SAT 96
[2022-07-29 04:00] VITALS: BP 125/84; PULSE 75; RESP 18; TEMP 36.6; O2SAT 99
[2022-07-29] MEDS: ACETAMINOPHEN 500 MG TABLET 1000 MG PO ×2 (04:30→13:38)
[2022-07-29 06:45] LABS: Hemoglobin* 11.2 gm/dL (12.0-16.0)
[2022-07-29 08:21] VITALS: BP 130/84; PULSE 70; RESP 16; TEMP 36.6; O2SAT 98
[2022-07-29] MEDS: IBUPROFEN 600 MG TABLET PO (08:29)
[2022-07-29] MEDS: DOCUSATE SODIUM 100 MG CAPSULE PO (08:29)
--- NOTE | 2022-07-29 08:43 | PM.OBDSVD1 ---
DS: Providers Provider Date Seen: 07/29/22 Date of admission: 07/28/22 07:40 Primary care physician: Brandon Nj PA-C Admitting Clinician: Karie Castro MD Attending Physician on discharge: Karie Castro MD Date of Discharge: 07/29/22 DS: Diagnosis Discharge Diagnosis (1) (normal spontaneous vaginal delivery): Status: Acute Exam Narrative: Exam Narrative: General: Pleasant, no acute distress Heart: Regular rate and rhythm, no murmur or gallop Lungs: Clear to auscultation bilaterally Abdomen: Soft, nontender, fundus well below umbilicus Lower extremities: No edema or erythema Const: Vital Signs, click to edit/add: Vital Signs - 24 hr 07/28/22 09:40 07/28/22 10:46 07/28/22 11:30 Temperature 98.4 F 98.3 F Pulse Rate 103 H 94 86 Pulse Rate [Pulse Oximeter] Respiratory Rate Blood Pressure 133/83 136/72 135/83 Blood Pressure [Ri ght Arm] [facility] 12:54 07/28/22 14:05 07/28/22 15:08 Temperature 98.5 F Pulse Rate 81 83 83 Pulse Rate [Pulse Oximeter] Respiratory Rate Blood Pressure 136/73 133/78 131/67 Blood Pressure [Ri ght Arm] Pulse Oximetry [facility] 07/28/22 16:52 07/28/22 17:07 07/28/22 17:22 Temperature Pulse Rate 95 90 93 Pulse Rate [Pulse Oximeter] Respiratory Rate Blood Pressure 136/61 124/60 122/56 L Blood Pressure [Ri ght Arm] Pulse Oximetry [facility] 07[facility]22 17:37 07/28/22 17:53 07/28/22 18:07 Temperature Pulse Rate 85 83 80 Pulse Rate [Pulse Oximeter] Respiratory Rate Blood Pressure 131/61 134/92 H 129/68 Blood Pressure [Ri ght Arm] Pulse Oximetry [facility] 07/[facility] 18:22 07/28/22 18:37 07/28/22 16:15 Temperature 98.3 F 98.2 F Pulse Rate 88 94 85 Pulse Rate [Pulse Oximeter] Respiratory Rate Blood Pressure 132/75 143/68 H 131/70 Blood Pressure [Ri ght Arm] Pulse Oximetry 97 Oxygen Delivery Me thod 07/28/22 18:37 07/28/22 19:30 07/29/22 00:00 Temperature 98.3 F 98.8 F 98.5 F Pulse Rate Pulse Rate [Pulse Oximeter] 84 86 Respiratory Rate 18 18 Blood Pressure Blood Pressure [Ri ght Arm] 146/77 H 120/73 Pulse Oximetry 97 96 Oxygen Delivery Me thod Room Air Room Air 07/29/22 04:00 07/29/22 08:21 Temperature 97.9 F 97.8 F Pulse Rate Pulse Rate [Pulse Oximeter] 75 70 Respiratory Rate 18 16 Blood Pressure Blood Pressure [Ri ght Arm] 125/84 130/84 Pulse Oximetry 99 98 Oxygen Delivery Me thod Room Air Room Air OB - DS: Summary Hospital Course Hospital Course: Candida is a 26-year-old G3 now P 2-0-1-2 woman who presented on 07/28/2022 at 39 weeks, 2 days gestation for elective induction of labor. Ob problem list: 1. 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 Unplanned , but excited. Uncertain if father of baby will be involved 3. Varicella nonimmune, vaccinate 4. Anemia: Hgb at 29 weeks:9.3 -Start Ferrous sulfate BID -Re check hemoglobin at 34 weeks:9.6, patient has been consistent utilizing med BID -Recommend IV iron infusion 06/27/22- completed 5. Lower extremity swelling -More prominent on the right side, lower extremity doppler exam on 07/25/22 negative for DVT bilaterally. COVID vaccine: Due for booster Flu: 03/14/22 She had a spontaneous vaginal delivery on day of admission. She gave to a female with Apgars of 8 and 9. QBL was 15 mL. She had a hemostatic first-degree vaginal laceration that did not require repair. She had a few mildly elevated blood pressures during her course, with readings 140s over 90s at their highest. HELLP labs today are all normal. Her hemoglobin on the morning of day 1 was 11.2. Today, on day 1, she is feeling well. Her only concern is discomfort from hemorrhoids. She is well. She denies heavy bleeding. Infant Gender: Female Time Spent with Patient Time attestation: Total time spent providing and/or coordinating discharge services: Discharge Plan Discharge Disposition: Home, Self-Care Date of Admission: 07/28/22 07:40 Attending Provider on Discharge: Fernanda Clark Primary Care Provider: Brandon Nj Condition: Stable Anticipated Discharge Date/Time: 07/29/22 10:14 Discharge Medications: New acetaminophen 500 mg Tablet 1,000 mg PO Q6H PRN (Reason: pain/fever) Qty: 0 0RF docusate sodium 100 mg Capsule 100 mg PO DAILY Qty: 30 0RF ibuprofen 600 mg Tablet 600 mg PO Q6H PRNQty: 60 0RF Lanolin (HPA) 100 % Cream 1 applic topical Q1H PRNQty: 0 0RF hydrocortisone 2.5 % cream 1 applic topical BID PRN7 Days Qty: 30 0RF Continued Gummies 400 mcg-35 mg- 25 mg-5 mg tablet,chewable 1 tab PO DAILY Qty: 90 0RF Discontinued ferrous sulfate 325 mg (65 mg iron) tablet 325 mg PO BID Qty: 90 0RF Discharge Orders: Discharge Order (Routine); Ordered 07/29/22 Ordered By: Fernanda Clark Patient Education: OB Over the Counter Medication Information, OB Vaginal/Breast Feeding Activity Detail: Nothing per vagina until bleeding stops Discharge Diet: Regular Follow Up Appointments: Brandon Nj PA-C [Primary Care Provider] - Fernanda Clark MD [Staff Physician] - Forms: Applyful Info Instructions
[2022-07-29 09:06] LABS: Hemoglobin* 11.4 gm/dL (12.0-16.0); Mean Corpuscular HGB Conc 33 gm/dL (32-36); Mean Corpuscular Hemoglobin 28 pg (26-34); Mean Corpuscular Volume 87 fL (80-100); Platelet Count* 235 K/uL (140-440); Red Blood Count 4.03 m/uL (4.00-5.20); White Blood Count* 10.35 K/uL (4.50-11.00)
[2022-07-29 09:08] LABS: Slide Review Reflex No
[2022-07-29 09:15] LABS: Alanine Aminotransferase* 21 U/L (4-35); Aspartate Amino Transferase* 30 U/L (12-35); Blood Urea Nitrogen* 10 mg/dL (5-24); Creatinine* 0.4 mg/dL (0.5-1.5); Estimated Glomerular Filt Rate 138 ml/min
[2022-07-29 09:22] LABS: Est. Creatinine Clearance* 188.42
[2022-07-29 13:00] VITALS: BP 128/77; PULSE 83; RESP 16; TEMP 36.8; O2SAT 96
[2022-07-29 16:15] VITALS: BP 131/82; PULSE 91; RESP 16; TEMP 37.1; O2SAT 97
== END 2022-07-29 18:50 | disposition home or self-care (01) | DRG 807 ==
PROVIDERS: Obstetrics & Gynecology; Admitting Provider Obstetrics & Gynecology; PCP Physician Assistant Medical; Visit Provider Obstetrics & Gynecology
DX: O12.04 Gestational edema, complicating childbirth (principal); Z37.0 Single live birth; O87.2 Hemorrhoids in the puerperium; R03.0 Elevated blood-pressure reading, without diagnosis of hypertension; O99.02 Anemia complicating childbirth; D64.9 Anemia, unspecified; O70.0 First degree perineal laceration during delivery; Z3A.39 39 weeks gestation of pregnancy
CPT/HCPCS: 36415; 82565; 84450; 84460; 84520; 85018; 85025; 85027; 86850; 86900; 86901; 87635; A9270; J3010; J7120

== ENCOUNTER 2023-04-20 10:03 | Outpatient (CLI) | payer MEDICAID, SELFPAY ==
--- NOTE | 2023-04-20 10:15 | CRLHL7_ITS ---
For Patients: As a result of the Cures Act, medical imaging exams and procedure reports are released immediately into your electronic medical record. You may view this report before your referring provider. If you have questions, please contact your health care provider. INDICATION: First trimester scan, establish dates. COMPARISON: None. TECHNIQUE: Real-time galeano-scale imaging of the pelvis was performed. FINDINGS: Sonographic imaging demonstrates a single living intrauterine gestation. The embryo demonstrates a regular cardiac rate measuring 167 beats per minute. The embryo`s crown-rump length measurement of 1.6 cm corresponds to a gestational age of 8 weeks 0 days with a sonographic due date of 11/30/2023. There is a normal-appearing yolk sac. There are no gross abnormalities noted within the embryo at this early state of development. The gestational sac has a normal appearance. There is a 2.0 x 0.3 x 1.4 cm perigestational hemorrhage. The amount of fluid within the sac appears appropriate for gestational age. The cervix is closed. The myometrium appears normal. Corpus luteal cyst left ovary. Normal right ovary. There are no suspicious fluid collections noted in the cul-de-sac. IMPRESSION: Single living intrauterine with sonographic gestational age 8 weeks 0 days and sonographic due date 11/30/2023. Left-sided subchorionic hemorrhage measuring 2.0 x 0.3 x 1.4 cm. Dictated by Ruperto Shirley MD @ 04/24/2023 6:07:00 AM (Electronically Signed)
== END 2023-04-20 10:04 | disposition home or self-care (01) ==
LOC: US 10:05
PROVIDERS: PCP Physician Assistant Medical; Visit Provider Physician Assistant
DX: Z34.91 Encounter for supervision of normal pregnancy, unspecified, first trimester (principal); O20.9 Hemorrhage in early pregnancy, unspecified; Z3A.08 8 weeks gestation of pregnancy
CPT/HCPCS: 76817; 86592; 86703; 86704; 86706; 86762; 86787; 86803; 86850; 86900; 86901; 87086; 87340; 87491; 87591; T1013

== ENCOUNTER 2023-07-17 12:43 | Outpatient (CLI) | payer MEDICAID, SELFPAY ==
--- NOTE | 2023-07-17 13:00 | US_ITS ---
Patient: ARJUN BRIGHT Facility:?[facility] Patient ID:?[id number] Site Patient ID:?[id number]. Site :?1995 Study:?US-OB Pelvis BFAS-07/17/2023 1:34:59 PM Ordering Physician:?ARABELLA CR Final Report: INDICATION: Evaluate anatomy. COMPARISON: 04/20/2023 TECHNIQUE: Real time galeano scale imaging of the fetus was performed as well as color Doppler analysis of the umbilical vessels. FINDINGS: Sonographic imaging demonstrates a single living intrauterine gestation. Fetus demonstrates a regular cardiac rate of 139 beats per minute. Fetus has a breech position. The placenta lies anteriorly without evidence of placenta previa. Placental edge is 6.0 cm the internal cervical os. Amniotic fluid volume appears normal. Single deepest vertical pocket: 4.0 cm. The cervix is closed and measures 4.2 cm in length. The composite ultrasound gestational age is calculated at 20 weeks 2 days with an estimated sonographic due date of 12/02/2023. The estimated weight is 355 grams which lies at the 39th %. The following biometric measurements were obtained: Biparietal diameter: 4.6 cm/19 weeks 5 days 18th% Head circumference: 17.4 cm/20 weeks 0 days 16th% Abdominal circumference: 15.1 cm/20 weeks 2 days 36th% Femur length: 3.4 cm/20 weeks 6 days 49th% The HC/AC ratio measures: 1.15 range (1.07-1.25) On anatomic survey, there is a normal appearance of the cerebral ventricles, cavum septi pellucidi, cisterna magna and cerebellum. The nose, lips, and facial profile appear normal. The cervical, thoracic and lumbar spine are well visualized and appear normal. There is a normal four-chamber heart view and the left and right ventricular outflow tracts appear normal. The diaphragm and stomach appear normal. The kidneys and bladder also appear normal. There is a normal three-vessel cord and cord insertion site. The four extremities appear normal. IMPRESSION: Normal OB ultrasound exam with concordance of clinical and sonographic dating. No intrinsic abnormalities noted on anatomic survey. Dictated by Ruperto Shirley MD @ 07/18/2023 6:12:43 AM Signed by:?Ruperto Shirley MD @07/18/2023 6:12:43 AM (Electronic Signature)
== END 2023-07-17 12:44 | disposition home or self-care (01) ==
LOC: US 12:44
PROVIDERS: PCP Physician Assistant Medical; Visit Provider Obstetrics & Gynecology
DX: Z34.92 Encounter for supervision of normal pregnancy, unspecified, second trimester (principal); Z3A.20 20 weeks gestation of pregnancy
CPT/HCPCS: 76805; T1013

== ENCOUNTER 2023-07-20 13:08 | Outpatient (CLI) | payer MEDICAID, SELFPAY | END 2023-07-20 13:09 | disposition home or self-care (01) | LOC: NFLDREF 08-01 14:12 | PROVIDERS: PCP Physician Assistant Medical; Referring Provider Physician Assistant Medical; Visit Provider Obstetrics & Gynecology | DX: O10.919 Unspecified pre-existing hypertension complicating pregnancy, unspecified trimester (principal) | CPT/HCPCS: 82565; 82570; 84156; 84450; 84460; 84520 ==

== ENCOUNTER 2023-07-27 10:28 | Outpatient (CLI) | payer MEDICAID, SELFPAY ==
[2023-07-27 12:31] LABS: Total Protein Urine 12 mg/dL
[2023-07-27 12:39] LABS: Creatinine Urine 51.7 mg/dL
[2023-07-27 17:07] LABS: Collection Time Urine 24 Hours; Total Volume 24 Hour Urine 2050 ml; Urine Creatinine mg/24 Hour 0 mg/Day
== END 2023-07-27 10:29 | disposition home or self-care (01) ==
LOC: NFLDREF 10:29
PROVIDERS: PCP Physician Assistant Medical; Visit Provider Obstetrics & Gynecology
DX: O10.912 Unspecified pre-existing hypertension complicating pregnancy, second trimester (principal)
CPT/HCPCS: 82570; 84156

== ENCOUNTER 2023-09-11 10:53 | Outpatient (CLI) | payer MEDICAID, SELFPAY ==
--- NOTE | 2023-09-11 11:00 | US_ITS ---
Patient: ARJUN BRIGHT Facility:?[facility] Patient ID:?[id number] Site Patient ID:?[id number]. Site :?1995 Study:?US-OB Pelvis OB F/U-09/11/2023 12:38:26 PM Ordering Physician:?Karie Castro Final Report: OB ULTRASOUND LEVI by US: 11/30/2023. GA: 28w, 4d. Single. INDICATION: Ultrasound for growth, pre-existing hypertension. COMPARISON: 07/17/2023. CERVIX: Visualized. Measurement: 5.1 cm. POSITIONING: Ousmane breech. AMNIOTIC FLUID: 4.2 cm. PLACENTA: Technique: Transabdominal. PLACENTA POSITION: Anterior. DOPPLER: heart rate: 144 bpm. Biometry: BPD: 7.2 cm. 28 w, 6 d, 46%. HC: 26.3 cm. 28 w, 4 d, 20%. AC: 23.6 cm. 27 w, 6 d, 24%. FL: 5.5 cm. 29 w, 0 d, 49%. FL/AC ratio: 23.36 percent. HC/AC ratio: 1.12. EFW: 1226 g. Weight: 2 lbs, 11 oz. age by this US: 28 w, 4 d. LEVI by this US: 11/30/2023. Percentile by LEVI: 32%. IMPRESSION: Measurements are consistent with dates. Good interval growth since the prior exam. Chico Velasco M.D. Body/Diagnostic Radiologist [email or web address] LIMA/tamara D& Transcribed: 10:06 a.juan mcdonald/Dictated by: Chico Velasco MD @ 09/12/2023 8:04:00 AM Signed by:?Chico Velasco MD @09/12/2023 10:23:24 AM (Electronic Signature)
== END 2023-09-11 10:54 | disposition home or self-care (01) ==
LOC: US 10:54
PROVIDERS: PCP Physician Assistant Medical; Visit Provider Obstetrics & Gynecology
DX: O10.913 Unspecified pre-existing hypertension complicating pregnancy, third trimester (principal); Z3A.29 29 weeks gestation of pregnancy
CPT/HCPCS: 76816; 86592; T1013

== ENCOUNTER 2023-10-12 10:58 | Outpatient (CLI) | payer MEDICAID, SELFPAY ==
--- NOTE | 2023-10-12 11:00 | CRLHL7_ITS ---
For Patients: As a result of the Century Cures Act, medical imaging exams and procedure reports are released immediately into your electronic medical record. You may view this report before your referring provider. If you have questions, please contact your health care provider. INDICATION: unspecified pre-existing hypertension TECHNIQUE: Real time galeano scale imaging of the fetus was performed. COMPARISON: 09/11/2023 FINDINGS: Sonographic imaging demonstrates a single living intrauterine gestation. Fetus demonstrates a regular cardiac rate of 167 beats per minute. Fetus has a vertex position. The placenta lies anteriorly. Amniotic fluid volume appears normal and there is a single deepest pocket of 5.1 cm. The estimated weight is 2000gm which lies at the 28th %. On the prior OB ultrasound dated 09/11/2023 the estimated weight was at the 32nd percentile. BPD 15th percentile. HC is 26th percentile. AC is 54th percentile. FL 8th percentile. The fetus was active and demonstrated normal breathing movements. There was normal flexion and extension of the trunk and extremities. IMPRESSION: Normal biophysical profile score 8/8. Sonographic gestational age 32 weeks 4 days and a sonographic due date of 12/03/2023. Good correlation with dates. Normal interval growth. Estimated weight 28th percentile. AC 54th percentile. Dictated by Ruperto Shirley MD @ 10/12/2023 1:38:48 PM (Electronically Signed)
== END 2023-10-12 10:59 | disposition home or self-care (01) ==
LOC: US 11:01
PROVIDERS: PCP Physician Assistant Medical; Visit Provider Registered Nurse
DX: O10.913 Unspecified pre-existing hypertension complicating pregnancy, third trimester (principal); Z3A.32 32 weeks gestation of pregnancy
CPT/HCPCS: 76816; 76819

== ENCOUNTER 2023-10-24 10:15 | Outpatient (CLI) | payer MEDICAID, SELFPAY ==
--- NOTE | 2023-10-24 10:15 | CRLHL7_ITS ---
For Patients: As a result of the Century Cures Act, medical imaging exams and procedure reports are released immediately into your electronic medical record. You may view this report before your referring provider. If you have questions, please contact your health care provider. INDICATION: CHRONIC HTN COMPARISON: 10/12/2023 TECHNIQUE: Real time galeano scale imaging of the fetus was performed. Without non-stress testing. FINDINGS: Sonographic imaging demonstrates a single living intrauterine gestation. Fetus demonstrates a regular cardiac rate of 167 beats per minute. Fetus has a vertex position. The amniotic fluid volume appears normal and there is a single deepest pocket measurement of 6.5 cm. The fetus was active and demonstrated normal breathing movements. There was normal flexion and extension of the trunk and extremities. IMPRESSION: Normal biophysical profile score of 8 out of 8. Dictated by Ruperto Shirley MD @ 10/25/2023 10:44:52 AM (Electronically Signed)
--- OUTSIDE RECORDS SUMMARY | 2023-10-24 10:17 | XMS_ITS | Referral Summary ---
Author Organization [place] Address [facility] [place] [address] Care Team Providers Care Cannoneer Name Role Phone [facility]- Primary Care Provider Allergies No known active allergies Medications Medication Sig Dispensed Refills Start Date End Date Status Vit-Fe Fumarate-FA ( VITAMINS PO) Ac tive Ferrous Sulfate (IRON PO) Active Social History Tobacco Use Types Packs/Day Years Used Date Smoking Tobacco: Never Smokeless Tobacco: Never Tobacco Cessation:Counseling Given: Not Answered Alcohol Use Standard Drinks/Week Comments Not Currently 0 (1 standard drink = 0.6 oz pur e alcohol) Adolescent Education Answer Date Record ed Getting School Help Needed Not on file 02/10 Sex and Gender Information Value Date Recorded Sex Assigned at Not on file Gender Identity Not on file Sexual Orientation Not on file Last Filed Vital Signs Vital Sign Reading Time Taken Comments Blood Pressure 131/79 06/14/2022 11:54 AM SPEECH LANGUAGE PATHOLOGIST Pulse 102 06/14/2022 11:54 AM SPEECH LANGUAGE PATHOLOGIST Temperature 37.1 ??C (98.7 ??F) 06/14/2022 11:[address] Respiratory Rate 18 06/14/2022 11:54 AM SPEECH LANGUAGE PATHOLOGIST Oxygen Saturation 99% 08/13/2020 4:45 AM CDT Inhaled Oxygen Concentration - - Weight 87.1 kg (192 lb) 06/14/2022 11:54 AM SPEECH LANGUAGE PATHOLOGIST Height 165.1 cm (5' 5) 06/14/2022 11:54 AM SPEECH LANGUAGE PATHOLOGIST Body Mass Index 31.95 06/14/2022 11:54 AM SPEECH LANGUAGE PATHOLOGIST Plan of Treatment Not on file Care Teams Cannoneer Relationship Specialty Start Date End Date [facility]- [address] [place] [address] PCP - General 08/13/20
--- OUTSIDE RECORDS SUMMARY | 2023-10-24 10:17 | XMS_ITS | Clinical Summary ---
Author Organization [place] Address [facility] [place] [address] Care Team Providers Care Computer Graphic Artist Name Role Phone [facility]- Primary Care Provider Allergies No known active [...] Comments Blood Pressure 131/79 06/14/2022 11:54 AM DISTRICT SUPERVISOR Pulse 102 06/14/2022 11:54 AM DISTRICT SUPERVISOR Temperature 37.1 ??C (98.7 ??F) 06/14/2022 11:[address] Respiratory Rate 18 06/14/2022 11:54 AM DISTRICT SUPERVISOR Oxygen Saturation 99% 08/13/2020 4:45 AM CDT Inhaled Oxygen Concentration - - Weight 87.1 kg (192 lb) 06/14/2022 11:54 AM DISTRICT SUPERVISOR Height 165.1 cm (5' 5) 06/14/2022 11:54 AM DISTRICT SUPERVISOR Body Mass Index 31.95 06/14/2022 11:54 AM DISTRICT SUPERVISOR Plan of Treatment Health Maintenance Due Date Last Done Comments ADVANCE CARE PLANNING 1993 ANNUAL REVIEW OF HM ORDERS 1993 YEARLY PREVENTIVE VISIT 1993 HIV SCREENING 2008 HEPATITIS C SCREENING 10/01/2011 PAP 2014 HEPATITIS B IMMUNIZATION (3 of 3 - 19+ 3-dose series) 12/27/2017 08/03/2017, 06/29/2017 COVID-19 Vaccine (3 - 3-2 4 season) 2023 10/19/2020, 09/28/2020 PHQ-2 (once per calendar year) 2023 INFLUENZA VACCINE (Season Ended) 2024 03/14/2022, 03/26/2019, 08/24/2017 DTAP/TDAP/TD IMMUNIZATION (2 - Td or Tdap) 10/26/2027 10/25/2017 HPV IMMUNIZATION Aged Out No longer e ligible based on patient's age to complete this topic IPV IMMUNIZATION Aged Out No longer e ligible based on patient's age to complete this topic MENINGITIS IMMUNIZATION Aged Out No l onger eligible based on patient's age to complete this topic Pneumococcal Vaccine: Pediatrics (0 to 5 Years) and At-Risk Patients (6 to 64 Years) Aged Out No longer eligible b ased on patient's age to complete this topic RSV MONOCLONAL ANTIBODY Aged Out No l onger eligible based on patient's age to complete this topic Care Teams Computer Graphic Artist Relationship Specialty Start Date End Date [facility]- [address] [place] [address] PCP - General 08/13/20
== END 2023-10-24 10:16 | disposition home or self-care (01) ==
LOC: US 10:15
PROVIDERS: PCP Physician Assistant Medical; Visit Provider Obstetrics & Gynecology
DX: O10.919 Unspecified pre-existing hypertension complicating pregnancy, unspecified trimester (principal)
CPT/HCPCS: 76819; 87086; T1013

== ENCOUNTER 2023-10-24 12:07 | Outpatient (CLI) | payer MEDICAID, SELFPAY ==
--- OUTSIDE RECORDS SUMMARY | 2023-10-24 12:10 | XMS_ITS | Clinical Summary ---
Author Organization [place] Address [facility] [place] [address] Care Team Providers Care Bank Representative Name Role Phone [facility]- Primary Care Provider Allergies No [...] Comments Blood Pressure 131/79 06/14/2022 11:54 AM FINANCIAL ANALYST INTERN Pulse 102 06/14/2022 11:54 AM FINANCIAL ANALYST INTERN Temperature 37.1 ??C (98.7 ??F) 06/14/2022 11:[address] Respiratory Rate 18 06/14/2022 11:54 AM FINANCIAL ANALYST INTERN Oxygen Saturation 99% 08/13/2020 4:45 AM CDT Inhaled Oxygen Concentration - - Weight 87.1 kg (192 lb) 06/14/2022 11:54 AM FINANCIAL ANALYST INTERN Height 165.1 cm (5' 5) 06/14/2022 11:54 AM FINANCIAL ANALYST INTERN Body Mass Index 31.95 06/14/2022 11:54 AM FINANCIAL ANALYST INTERN Plan of Treatment Health Maintenance Due Date [...] age to complete this topic Care Teams Bank Representative Relationship Specialty Start Date End Date [facility]- [address] [place] [address] PCP - General 08/13/20
--- OUTSIDE RECORDS SUMMARY | 2023-10-24 12:10 | XMS_ITS | Referral Summary ---
Author Organization [place] Address [facility] [place] [address] Care Team Providers Care Buggy Operator Name Role Phone [facility]- Primary Care Provider Allergies No known [...] Comments Blood Pressure 131/79 06/14/2022 11:54 AM FELT HAT POUNCING OPERATOR HAND Pulse 102 06/14/2022 11:54 AM FELT HAT POUNCING OPERATOR HAND Temperature 37.1 ??C (98.7 ??F) 06/14/2022 11:[address] Respiratory Rate 18 06/14/2022 11:54 AM FELT HAT POUNCING OPERATOR HAND Oxygen Saturation 99% 08/13/2020 4:45 AM CDT Inhaled Oxygen Concentration - - Weight 87.1 kg (192 lb) 06/14/2022 11:54 AM FELT HAT POUNCING OPERATOR HAND Height 165.1 cm (5' 5) 06/14/2022 11:54 AM FELT HAT POUNCING OPERATOR HAND Body Mass Index 31.95 06/14/2022 11:54 AM FELT HAT POUNCING OPERATOR HAND Plan of Treatment Not on file Care Teams Buggy Operator Relationship Specialty Start Date End Date [facility]- [address] [place] [address] PCP - General 08/13/20
[2023-10-25 15:01] LABS: Strep B DNA Probe Negative (Negative)
[2023-10-25 23:30] LABS: Strep B Susceptibility Needed? No
== END 2023-10-24 12:08 | disposition home or self-care (01) ==
LOC: NFLDREF 12:08
PROVIDERS: PCP Physician Assistant Medical; Visit Provider Obstetrics & Gynecology
DX: Z34.83 Encounter for supervision of other normal pregnancy, third trimester (principal)
CPT/HCPCS: 87081; 87086; 87653

== ENCOUNTER 2023-11-01 11:45 | Outpatient (CLI) | payer MEDICAID, SELFPAY ==
--- OUTSIDE RECORDS SUMMARY | 2023-11-01 11:48 | XMS_ITS | Clinical Summary ---
Author Organization [place] Address [facility] [place] [address] Care Team Providers Care Communications Strategist Name Role Phone [facility]- Primary Care Provider Allergies No known [...] Comments Blood Pressure 131/79 06/14/2022 11:54 AM PAINTING AND COATING WORKER Pulse 102 06/14/2022 11:54 AM PAINTING AND COATING WORKER Temperature 37.1 ??C (98.7 ??F) 06/14/2022 11:[address] Respiratory Rate 18 06/14/2022 11:54 AM PAINTING AND COATING WORKER Oxygen Saturation 99% 08/13/2020 4:45 AM CDT Inhaled Oxygen Concentration - - Weight 87.1 kg (192 lb) 06/14/2022 11:54 AM PAINTING AND COATING WORKER Height 165.1 cm (5' 5) 06/14/2022 11:54 AM PAINTING AND COATING WORKER Body Mass Index 31.95 06/14/2022 11:54 AM PAINTING AND COATING WORKER Plan of Treatment Health Maintenance Due Date [...] age to complete this topic Care Teams Communications Strategist Relationship Specialty Start Date End Date [facility]- [address] [place] [address] PCP - General 08/13/20
--- OUTSIDE RECORDS SUMMARY | 2023-11-01 11:48 | XMS_ITS | Referral Summary ---
Author Organization [place] Address [facility] [place] [address] Care Team Providers Care Piling Setter Name Role Phone [facility]- Primary Care Provider Allergies No known [...] Comments Blood Pressure 131/79 06/14/2022 11:54 AM MEDICAL IMAGING SPECIALIST Pulse 102 06/14/2022 11:54 AM MEDICAL IMAGING SPECIALIST Temperature 37.1 ??C (98.7 ??F) 06/14/2022 11:[address] Respiratory Rate 18 06/14/2022 11:54 AM MEDICAL IMAGING SPECIALIST Oxygen Saturation 99% 08/13/2020 4:45 AM CDT Inhaled Oxygen Concentration - - Weight 87.1 kg (192 lb) 06/14/2022 11:54 AM MEDICAL IMAGING SPECIALIST Height 165.1 cm (5' 5) 06/14/2022 11:54 AM MEDICAL IMAGING SPECIALIST Body Mass Index 31.95 06/14/2022 11:54 AM MEDICAL IMAGING SPECIALIST Plan of Treatment Not on file Care Teams Piling Setter Relationship Specialty Start Date End Date [facility]- [address] [place] [address] PCP - General 08/13/20
[2023-11-01 12:18] VITALS: BP 120/69; PULSE 79
--- NOTE | 2023-11-01 12:20 | CRLHL7_ITS ---
For Patients: As a result of the Century Cures Act, medical imaging exams and procedure reports are released immediately into your electronic medical record. You may view this report before your referring provider. If you have questions, please contact your health care provider. INDICATION: Nonreassuring NST, chronic hypertension COMPARISON: 10/24/2023 TECHNIQUE: Santana-scale and color Doppler of the gravid uterus and fetus from a transabdominal approach. FINDINGS: Estimated gestational age: 35 weeks 6 days Single intrauterine gestation in a vertex presentation. heart rate is 161 bpm. The heart appears normal. No pleural effusion, pericardial effusion, ascites, or skin edema. The placenta is anterior. No previa. No periplacental hemorrhage. WELLBEING tone: 2/2 movement: 2/2 breathin/2 Amniotic fluid volume: 2/2 The single deepest vertical pocket measures: 5.6 cm. The amniotic fluid index is 15.6 cm. The maternal cervix is obscured by the head. IMPRESSION: 1. Biophysical profile score 8/8. 2. Adequate amniotic fluid volume. Amniotic fluid index is 15.6 centimeters. Dictated by Negrita Lang MD @ 11/01/2023 1:15:21 PM (Electronically Signed)
--- NOTE | 2023-11-01 13:55 | PC.OBNST ---
NST Note NST Note Start: 11/01/23 11:57 Freq: ONCE Status: Active Protocol: Document 11/01/23 13:00 [facility] (Rec: 11/01/23 13:55 [facility] Desktop) NST Note 4 Para (# of births) 2 EDC 11/30/23 Gestational Age In Weeks & Days 35 Weeks & 6 Days Other Complaints Non-reassuring NST tracing in clinic Reactive Yes Appropriate for Gestational Age Yes LEANN Silva Date 11/01/23 Reactive Yes Appropriate for Gestational Age Yes LEANN Rashid OB NST charge Yes Complete NST Note via Write Note Yes The provider's electronic signature indicates the NST is reactive/appropriate for gestational age. *Note to provider: If an addendum is required, open the patient's chart and click on the note under the Nurse/Allied Health tab.
--- NOTE | 2023-11-08 14:29 | PC.OBNST ---
NST Note NST Note Start: 11/01/23 11:57 Freq: ONCE Status: Discharge Protocol: Document 11/01/23 13:00 [facility] (Rec: 11/01/23 13:55 [facility] Desktop) NST Note 4 Para (# of births) 2 EDC 11/30/23 Gestational Age In Weeks & Days 35 Weeks & 6 Days Other Complaints Non-reassuring NST tracing in clinic Reactive Yes Appropriate for Gestational Age Yes LEANN Silva Date 11/01/23 Reactive Yes Appropriate for Gestational Age Yes LEANN Rashid OB NST charge Yes Complete NST Note via Write Note Yes The provider's electronic signature indicates the NST is reactive/appropriate for gestational age. *Note to provider: If an addendum is required, open the patient's chart and click on the note under the Nurse/Allied Health tab.
== END 2023-11-01 13:30 | disposition home or self-care (01) ==
LOC: OB OUT 11:47 → OB 11:48
PROVIDERS: PCP Physician Assistant Medical; Visit Provider Obstetrics & Gynecology
DX: O10.913 Unspecified pre-existing hypertension complicating pregnancy, third trimester (principal); O36.8330 Maternal care for abnormalities of the fetal heart rate or rhythm, third trimester, not applicable or unspecified; Z3A.35 35 weeks gestation of pregnancy
CPT/HCPCS: 59025; 76819; G0463

== ENCOUNTER 2023-11-06 13:03 | Outpatient (CLI) | payer MEDICAID, SELFPAY ==
--- NOTE | 2023-11-06 13:00 | CRLHL7_ITS ---
For Patients: As a result of the Cures Act, medical imaging exams and procedure reports are released immediately into your electronic medical record. You may view this report before your referring provider. If you have questions, please contact your health care provider. INDICATION: Pre-existing hypertension TECHNIQUE: Real time galeano scale imaging of the fetus was performed. COMPARISON: 11/01/2023 FINDINGS: Sonographic imaging demonstrates a single living intrauterine gestation. Fetus demonstrates a regular cardiac rate of 137 beats per minute. Fetus has a vertex position. The placenta lies anteriorly. Amniotic fluid volume appears normal and there is a single deepest pocket of 4.0 cm. The estimated weight is 2629gm which lies at the 21st %. On the prior OB ultrasound dated 10/12/2023 the estimated weight was at the 27th percentile. There is adequate diastolic blood flow within the umbilical artery. The S/D ratio measures 2.1. BPD 60th percentile. HC less than 3rd percentile. AC 32nd percentile. FL is 6th percentile. The fetus was active and demonstrated normal breathing movements. There was normal flexion and extension of the trunk and extremities. IMPRESSION: Normal biophysical profile score 8/8. Sonographic gestational age 35 weeks 2 days and sonographic due date of 12/09/2023. Sonographic age is 9 days behind the clinical age. Estimated weight 21st percentile. Abdominal circumference 32nd percentile. HC less than 3rd percentile. Dictated by Ruperto Shirley MD @ 11/08/2023 5:49:55 AM (Electronically Signed)
--- OUTSIDE RECORDS SUMMARY | 2023-11-06 13:05 | XMS_ITS | Referral Summary ---
Author Organization [place] Address [facility] [place] [address] Care Team Providers Care Vending Route Servicer Name Role Phone [facility]- Primary Care Provider Allergies No known active [...] Comments Blood Pressure 131/79 06/14/2022 11:54 AM STUDY LEAD Pulse 102 06/14/2022 11:54 AM STUDY LEAD Temperature 37.1 ??C (98.7 ??F) 06/14/2022 11:[address] Respiratory Rate 18 06/14/2022 11:54 AM STUDY LEAD Oxygen Saturation 99% 08/13/2020 4:45 AM CDT Inhaled Oxygen Concentration - - Weight 87.1 kg (192 lb) 06/14/2022 11:54 AM STUDY LEAD Height 165.1 cm (5' 5) 06/14/2022 11:54 AM STUDY LEAD Body Mass Index 31.95 06/14/2022 11:54 AM STUDY LEAD Plan of Treatment Not on file Care Teams Vending Route Servicer Relationship Specialty Start Date End Date [facility]- [address] [place] [address] PCP - General 08/13/20
--- OUTSIDE RECORDS SUMMARY | 2023-11-06 13:05 | XMS_ITS | Clinical Summary ---
Author Organization [place] Address [facility] [place] [address] Care Team Providers Care Automatic Clipper And Stripper Name Role Phone [facility]- Primary Care Provider Allergies No known [...] Comments Blood Pressure 131/79 06/14/2022 11:54 AM TOWBOAT CAPTAIN Pulse 102 06/14/2022 11:54 AM TOWBOAT CAPTAIN Temperature 37.1 ??C (98.7 ??F) 06/14/2022 11:[address] Respiratory Rate 18 06/14/2022 11:54 AM TOWBOAT CAPTAIN Oxygen Saturation 99% 08/13/2020 4:45 AM CDT Inhaled Oxygen Concentration - - Weight 87.1 kg (192 lb) 06/14/2022 11:54 AM TOWBOAT CAPTAIN Height 165.1 cm (5' 5) 06/14/2022 11:54 AM TOWBOAT CAPTAIN Body Mass Index 31.95 06/14/2022 11:54 AM TOWBOAT CAPTAIN Plan of Treatment Health Maintenance Due Date [...] age to complete this topic Care Teams Automatic Clipper And Stripper Relationship Specialty Start Date End Date [facility]- [address] [place] [address] PCP - General 08/13/20
== END 2023-11-06 13:04 | disposition home or self-care (01) ==
LOC: US 13:04
PROVIDERS: PCP Physician Assistant Medical; Visit Provider Obstetrics & Gynecology
DX: O10.913 Unspecified pre-existing hypertension complicating pregnancy, third trimester (principal); Z3A.35 35 weeks gestation of pregnancy
CPT/HCPCS: 76816; 76819; 76820; T1013

== ENCOUNTER 2023-11-08 23:22 | Outpatient (CLI) | payer MEDICAID, SELFPAY ==
--- OUTSIDE RECORDS SUMMARY | 2023-11-08 23:24 | XMS_ITS | Referral Summary ---
Author Organization [place] Address [facility] [place] [address] Care Team Providers Care Front Office Supervisor Name Role Phone [facility]- Primary Care [...] Comments Blood Pressure 131/79 06/14/2022 11:54 AM EARTHMOVING PLANT OPERATOR Pulse 102 06/14/2022 11:54 AM EARTHMOVING PLANT OPERATOR Temperature 37.1 ??C (98.7 ??F) 06/14/2022 11:[address] Respiratory Rate 18 06/14/2022 11:54 AM EARTHMOVING PLANT OPERATOR Oxygen Saturation 99% 08/13/2020 4:45 AM CDT Inhaled Oxygen Concentration - - Weight 87.1 kg (192 lb) 06/14/2022 11:54 AM EARTHMOVING PLANT OPERATOR Height 165.1 cm (5' 5) 06/14/2022 11:54 AM EARTHMOVING PLANT OPERATOR Body Mass Index 31.95 06/14/2022 11:54 AM EARTHMOVING PLANT OPERATOR Plan of Treatment Not on file Care Teams Front Office Supervisor Relationship Specialty Start Date End Date [facility]- [address] [place] [address] PCP - General 08/13/20
--- OUTSIDE RECORDS SUMMARY | 2023-11-08 23:24 | XMS_ITS | Clinical Summary ---
Author Organization [place] Address [facility] [place] [address] Care Team Providers Care Emergency Nurse Name Role Phone [facility]- Primary Care Provider Allergies No known [...] Comments Blood Pressure 131/79 06/14/2022 11:54 AM CODING SUPPORT SPECIALIST Pulse 102 06/14/2022 11:54 AM CODING SUPPORT SPECIALIST Temperature 37.1 ??C (98.7 ??F) 06/14/2022 11:[address] Respiratory Rate 18 06/14/2022 11:54 AM CODING SUPPORT SPECIALIST Oxygen Saturation 99% 08/13/2020 4:45 AM CDT Inhaled Oxygen Concentration - - Weight 87.1 kg (192 lb) 06/14/2022 11:54 AM CODING SUPPORT SPECIALIST Height 165.1 cm (5' 5) 06/14/2022 11:54 AM CODING SUPPORT SPECIALIST Body Mass Index 31.95 06/14/2022 11:54 AM CODING SUPPORT SPECIALIST Plan of Treatment Health Maintenance Due Date [...] age to complete this topic Care Teams Emergency Nurse Relationship Specialty Start Date End Date [facility]- [address] [place] [address] PCP - General 08/13/20
[2023-11-08 23:34] VITALS: BP 125/76; PULSE 76; RESP 16; TEMP 37; O2SAT 97
--- NOTE | 2023-11-09 01:40 | PC.OBNST ---
NST Note NST Note Start: 11/08/23 23:39 Freq: ONCE Status: Active Protocol: Document 11/09/23 01:39 [facility] (Rec: 11/09/23 01:40 RRP [id number]) NST Note 4 Para (# of births) 2 EDC 11/30/23 Gestational Age In Weeks & Days 37 Weeks & 0 Days High Risk Factors High Blood Pressure - Preexisting Patient Presented with Complaint(s) of Contractions/cramping Reactive Yes Appropriate for Gestational Age Yes RN Bisi Sky RN Date 11/09/23 Reactive Yes Appropriate for Gestational Age Yes LEANN Singleton RN Date 11/09/23 OB NST charge Yes Complete NST Note via Write Note Yes The provider's electronic signature indicates the NST is reactive/appropriate for gestational age. *Note to provider: If an addendum is required, open the patient's chart and click on the note under the Nurse/Allied Health tab.
== END 2023-11-09 01:35 | disposition home or self-care (01) ==
LOC: OB OUT 23:22 → OB 23:22
PROVIDERS: PCP Physician Assistant Medical; Visit Provider Obstetrics & Gynecology
DX: O10.913 Unspecified pre-existing hypertension complicating pregnancy, third trimester (principal); Z3A.37 37 weeks gestation of pregnancy
CPT/HCPCS: 59025; G0463

== ENCOUNTER 2023-11-13 10:51 | Outpatient (CLI) | payer MEDICAID, SELFPAY ==
--- OUTSIDE RECORDS SUMMARY | 2023-11-13 10:54 | XMS_ITS | Clinical Summary ---
Author Organization [place] Address [facility] [place] [address] Care Team Providers Care C Application Developer Name Role Phone [facility]- Primary Care Provider Allergies No known [...] Blood Pressure 131/79 06/14/2022 11:54 AM MEDICAL SERVICE REPRESENTATIVE Pulse 102 06/14/2022 11:54 AM MEDICAL SERVICE REPRESENTATIVE Temperature 37.1 ??C (98.7 ??F) 06/14/2022 11:[address] Respiratory Rate 18 06/14/2022 11:54 AM MEDICAL SERVICE REPRESENTATIVE Oxygen Saturation 99% 08/13/2020 4:45 AM CDT Inhaled Oxygen Concentration - - Weight 87.1 kg (192 lb) 06/14/2022 11:54 AM MEDICAL SERVICE REPRESENTATIVE Height 165.1 cm (5' 5) 06/14/2022 11:54 AM MEDICAL SERVICE REPRESENTATIVE Body Mass Index 31.95 06/14/2022 11:54 AM MEDICAL SERVICE REPRESENTATIVE Plan of Treatment Health Maintenance Due Date [...] age to complete this topic Care Teams C Application Developer Relationship Specialty Start Date End Date [facility]- [address] [place] [address] PCP - General 08/13/20
--- OUTSIDE RECORDS SUMMARY | 2023-11-13 10:55 | XMS_ITS | Referral Summary ---
Author Organization [place] Address [facility] [place] [address] Care Team Providers Care Application Design Engineer Name Role Phone [facility]- Primary Care Provider Allergies No [...] Comments Blood Pressure 131/79 06/14/2022 11:54 AM UROLOGIST PHYSICIAN Pulse 102 06/14/2022 11:54 AM UROLOGIST PHYSICIAN Temperature 37.1 ??C (98.7 ??F) 06/14/2022 11:[address] Respiratory Rate 18 06/14/2022 11:54 AM UROLOGIST PHYSICIAN Oxygen Saturation 99% 08/13/2020 4:45 AM CDT Inhaled Oxygen Concentration - - Weight 87.1 kg (192 lb) 06/14/2022 11:54 AM UROLOGIST PHYSICIAN Height 165.1 cm (5' 5) 06/14/2022 11:54 AM UROLOGIST PHYSICIAN Body Mass Index 31.95 06/14/2022 11:54 AM UROLOGIST PHYSICIAN Plan of Treatment Not on file Care Teams Application Design Engineer Relationship Specialty Start Date End Date [facility]- [address] [place] [address] PCP - General 08/13/20
== END 2023-11-13 10:52 | disposition home or self-care (01) ==
PROVIDERS: PCP Physician Assistant Medical; Visit Provider Obstetrics & Gynecology
DX: Z34.93 Encounter for supervision of normal pregnancy, unspecified, third trimester (principal); Z3A.37 37 weeks gestation of pregnancy
CPT/HCPCS: 82565; 82570; 84156; 84450; 84460; 84520; T1013

== ENCOUNTER 2023-11-13 14:30 | Inpatient (IN) | payer MEDICAID, SELFPAY ==
[2023-11-13] VITALS (22 sets, daily range): BP systolic 118–155; BP diastolic 69–90; PULSE 81–105; RESP 16–20; TEMP 36.8–37.1; O2SAT 97–98; BMI 28.1
--- OUTSIDE RECORDS SUMMARY | 2023-11-13 11:56 | XMS_ITS | Referral Summary ---
Author Organization [place] Address [facility] [place] [address] Care Team Providers Care Investigative Research Specialist Name Role Phone [facility]- Primary Care Provider Allergies No known [...] Comments Blood Pressure 131/79 06/14/2022 11:54 AM CONSERVATION EDUCATOR Pulse 102 06/14/2022 11:54 AM CONSERVATION EDUCATOR Temperature 37.1 ??C (98.7 ??F) 06/14/2022 11:[address] Respiratory Rate 18 06/14/2022 11:54 AM CONSERVATION EDUCATOR Oxygen Saturation 99% 08/13/2020 4:45 AM CDT Inhaled Oxygen Concentration - - Weight 87.1 kg (192 lb) 06/14/2022 11:54 AM CONSERVATION EDUCATOR Height 165.1 cm (5' 5) 06/14/2022 11:54 AM CONSERVATION EDUCATOR Body Mass Index 31.95 06/14/2022 11:54 AM CONSERVATION EDUCATOR Plan of Treatment Not on file Care Teams Investigative Research Specialist Relationship Specialty Start Date End Date [facility]- [address] [place] [address] PCP - General 08/13/20
--- OUTSIDE RECORDS SUMMARY | 2023-11-13 11:56 | XMS_ITS | Clinical Summary ---
Author Organization [place] Address [facility] [place] [address] Care Team Providers Care Paper Goods Machine Operator Name Role Phone [facility]- Primary Care Provider Allergies No known active [...] Comments Blood Pressure 131/79 06/14/2022 11:54 AM SOCIAL SERVICES MANAGER Pulse 102 06/14/2022 11:54 AM SOCIAL SERVICES MANAGER Temperature 37.1 ??C (98.7 ??F) 06/14/2022 11:[address] Respiratory Rate 18 06/14/2022 11:54 AM SOCIAL SERVICES MANAGER Oxygen Saturation 99% 08/13/2020 4:45 AM CDT Inhaled Oxygen Concentration - - Weight 87.1 kg (192 lb) 06/14/2022 11:54 AM SOCIAL SERVICES MANAGER Height 165.1 cm (5' 5) 06/14/2022 11:54 AM SOCIAL SERVICES MANAGER Body Mass Index 31.95 06/14/2022 11:54 AM SOCIAL SERVICES MANAGER Plan of Treatment Health Maintenance Due Date [...] age to complete this topic Care Teams Paper Goods Machine Operator Relationship Specialty Start Date End Date [facility]- [address] [place] [address] PCP - General 08/13/20
--- NOTE | 2023-11-13 14:30 | PM.OBHPLI ---
OB - H&P: HPI Labor/Induction History of Present Illness Date Seen: 11/13/23 Chief Complaint: The patient is a 28 year old 4 para 2011 at 37 4/7 weeks gestation by first trimester US, who presents with CHTN and evidence of superimposed preeclampsia w/o severe features. Chief complaint: maternity : 4 Para: 2 Indications for induction: pre-eclampsia Narrative: Patient states that she has not been feeling well for the last couple of weeks, but really felt unwell this past weekend. Patient states that during Sunday she experienced a headache all day, only mildly improved by Tylenol. Patient states that eventually that day she was able to rest and headache went away. She has also been feeling very uncomfortable with pelvic pain and pressure. She has noticed increased swelling of her lower extremities. She has been monitoring blood pressures at home and these have been around 120s over 80s. Today in a routine clinic visit patient completed an NST which was found to have recurrent variable decelerations. A bedside US completed and found SDP of 6cm. Preeclampsia labs collected, and patient sent to labor and delivery for prolonged monitoring. Upon re evaluation, patient had 1 significantly elevated blood pressure at 155/79, protein to creatinine ratio elevated. At this gestational age, risks vs benefits explained to patient, concerning findings of superimposed preeclampsia, previous NST with recurrent variable decelerations and recommendation was given for admission and to proceed with IOL today. Specific Issues/Plans PLEASE CALL [facility] FOR DELIVERY # Peruvian-speaking, eligibility supervisor required # Chronic hypertension - Patient with elevated blood pressures at 6 week and at urgent care visit more than 6 months after her delivery. - Start baby ASA, KINZA - Monitor blood pressures at home, will need monitoring advise etc... at her next appointment - Growth US every 4 weeks and weekly testing after 32 weeks. - IOL due to CHTN tto start at 38 0/7 on 11/16/23. Request sent. # History of precipitous labor, less than 3 hours. # History of depression # Short interval , last delivery 07/28/2022 # Scoliosis and lumbar lordosis # Hep B non-immune # Varicella non-immune Vaccination # Obesity, BMI 30.3 Hemoglobin A1c 5.0% IMAGING 11/06/2023 36 weeks 4 days: Vertex, SDP 4.0 cm, BPP 8/8. EFW 2629 g, 5 lb 13 oz, 20%, BPD 60%, HC< 3%, AC 32%, FL 5% TDAP: 09/26/23 History of Present Dating criteria: based on 1st trimester US only care: good care Ultrasounds: normal 1st trimester US and normal mid trimester US complications: chronic hypertension Review of Systems Status of ROS: Reports: 10 or more systems reviewed and unremarkable except as noted in History and below Meds Home Medications and Allergies Home Medications ?Medication ?Instructions ?Recorded ?Confirmed ?Type calcium carbonate (Tums) 200 mg PO BID PRN 04/20/23 11/13/23 History docosahexaenoic acid 200 mg 200 mg PO DAILY 05/17/23 11/13/23 History capsule ( DHA) Allergies Allergy/AdvReac Type Severity Reaction Status Date / Time No Known Drug Allergies Allergy Verified 11/13/23 08:26 OB - H&P: Exam Physical Exam: Vital signs: Pulse BP Pulse Ox 93 136/81 98 11/13/23 13:37 11/13/23 13:37 11/13/23 12:04 Narrative: VITAL SIGNS: As noted above. GENERAL APPEARANCE: Alert, cooperative female in no acute distress. MOOD & AFFECT: Normal. HEART: Regular rate and rhythm without murmurs. LUNGS: Lungs are clear to auscultation bilaterally. No crackles, wheezes, or rhonchi. ABDOMEN: Gravid, nontender : 1.5 cm/50%/-3 EXTREMITIES:Compression stockings in place. Well perfused. Nontender. NEURO: Intact. OB - Problem Based A/P Additional Plan (1) Chronic hypertension affecting : Problem details: With superimposed preeclampsia w/o severe features. Status: Acute Plan Continue close monitoring of vital signs, I/O, UNIX SYSTEMS ADMINISTRATOR irritability symptoms. Will repeat preeclampsia labs if concerns for severity develop during IOL process. Continuous monitoring. GBS negative,no need for antibiotic prophylaxis. IOL plan: IV Oxytocin and AROM when able. Delivery/Labor/Induction Plan Plan: induction Induction method: per pitocin protocol
[2023-11-13] MEDS: LACTATED RINGERS 1000 ML 1,000 ML 125 ML IV (14:53)
[2023-11-13] MEDS: OXYTOCIN 30 unit/500 ML in NS 30 UNIT/500 ML BAG IVPB (14:54)
[2023-11-13] MEDS: LACTATED RINGERS 1000 ML 1,000 ML 111 ML IV (23:29)
[2023-11-14] VITALS (38 sets, daily range): BP systolic 98–146; BP diastolic 43–88; PULSE 63–96; RESP 16; TEMP 36.6–37; O2SAT 95–100
[2023-11-14] MEDS: BUPIVACAINE 0.25% PF 10 ML 10 ML ML EPIDURAL (01:36)
[2023-11-14] MEDS: ROPIVACAINE 0.2% 100 ml 100 ML 12 MG EPIDURAL (01:36)
[2023-11-14] MEDS: LACTATED RINGERS 1000 ML 1,000 ML 1200 ML IV (01:40)
--- NOTE | 2023-11-14 03:01 | PM.ANBPRC ---
[facility] Medical History (normal spontaneous vaginal delivery) ?O80 - Encounter for full-term uncomplicated delivery (ICD-10) Anemia ?D64.9 - Anemia, unspecified (ICD-10) No chronic problems Surgical History History of surgical removal of keloid ?Z98.890 - Other specified postprocedural states (ICD-10) ?Z87.2 - Personal history of diseases of the skin and subcutaneous tissue (ICD-10) History of breast lump/mass excision ?Z98.890 - Other specified postprocedural states (ICD-10) Family History Maternal Grandmother Breast cancer Sister Thyroid disease Aunt Thyroid disease Other Diabetes High blood pressure Social History Narrative: SOCIAL HISTORY: 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 Marital status: Significant other. Evangelical/cultural needs: no. Chemical or radiation exposure: no. Pre- tobacco use: no. Pre- alcohol use: no. Current tobacco use: no. Current alcohol use: no. Recreational drug use: no. Dietary restrictions: no. Blood transfusion acceptable in an emergency: yes. PSYCHOSOCIAL HISTORY: History of depression or currently depressed: depression. Current or past physical, emotional, or sexual mistreatment: Denies. Problems that will make it hard to make it to appointments: Denies. What is your current living situation?: I presently have a place to live Problems where you live: no known problems In the past 12 months, utilities in danger of being shut off: no In past 12 months, lack of transportation kept you from medical appts, meetings, work, or getting things needed for daily living: no In the past 12 mos, have been you worried that your food would run out before you had money to buy more?: never true In the past 12 mos, the food you bought just didn't last and you didn't have money to buy more?: never true Smoking Status: Never smoker How often do you have a drink containing alcohol: never AUDIT-C Alcohol total score: 0 Non-prescribed substance use: denies use How often does anyone, including family, friends and others, physically hurt you: never How often does anyone, including family, friends and others, insult or talk down to you: never How often does anyone, including family, friends and others, threaten you with harm: never How often does anyone, including family, friends and others, scream or curse at you: never Little interest or pleasure in doing things: not at all Feeling down, depressed, or hopeless: not at all service: No Meds Home Medications and Allergies Home Medications ?Medication ?Instructions ?Recorded ?Confirmed ?Type calcium carbonate (Tums) 200 mg PO BID PRN 04/20/23 11/13/23 History docosahexaenoic acid 200 mg 200 mg PO DAILY 05/17/23 11/13/23 History capsule ( DHA) Allergies Allergy/AdvReac Type Severity Reaction Status Date / Time No Known Drug Allergies Allergy Verified 11/13/23 08:26 Results Labs Labs: Laboratory Results - last 24 hr 11/13/23 14:39 Blood Type O Positive Antibody Screen NEGATIVE Vital Signs Vital Signs: Last Vital Signs Temp 98.6 F 11/14/23 01:45 Pulse 74 11/14/23 02:50 Resp 20 11/13/23 17:55 BP 103/59 L 11/14/23 02:50 Pulse Ox 99 11/14/23 01:43 Weight: 76.657 kg Height: 165.1 cm Anesthesia Procedures Epidural Insertion Patient Location: OB Start Time: 01:00 Stop Time: 02:00 Start Date: 11/14/23 Stop Date: 11/14/23 Reason for Block: procedure for pain Patient Position: sitting Performed By: Raudel Mercado Preanesthetic Checklist: IV checked, risks and benefits discussed, surgical consent, monitors and equipment checked, pre-op evaluation, timeout performed and anesthesia consent Prep: chlorhexidine gluconate Monitoring: blood pressure monitoring, continuous pulse oximetry and heart rate Approach: midline Vertebral Space: lumbar (1-5) Epidural Technique: ERNESTO saline Needle Type: Tuohy needle Injection Technique: continuous catheter Needle gauge: 17 Needle Length (cm): 10 cm Needle Insertion Depth (cm): 6 Catheter Gauge: 19 Catheter Type: multi-orifice Catheter at skin depth (cm): 12 Test Dose Result: negative and lidocaine 1.5% with epinephrine 1 to 200,000
--- NOTE | 2023-11-14 03:53 | W.PM.OBVAGDE ---
OB Procedure Vag Delivery Mother Details Mother Details: The patient is a 28 year-old, 4, Para 2, admitted on 11/13/23 at 37 4/7 Days gestation for IOL due to CHTN with superimposed preeclampsia w/o severe features. : 4 Para: 3 Weeks Gestation: 37.5 Admission Date: 11/13/23 Additional Details Amniotic Membrane Status: AROM Amniotic Membrane Rupture Date: 11/13/23 Amniotic Membrane Rupture Time: 22:49 Amniotic Membrane Fluid Description: Clear Analgesia/Anesthesia Type: Epidural Waterbirth: No Pitcoin: Yes Intrapartal Events: Labor Induction Induction Method: per pitocin protocol and AROM Labor Onset: 22:49 Complete: 03:24 Pushin:29 Heart: heart tones during second stage were category 2. Deep variable decelerations noted, patient feeling increased pressure and found complete and +2 station. Delivery Details Delivery Date: 11/14/23 Delivery Time: 03:32 Route of delivery: Gender: Female Viability: Alive; Heart Rate Present Position at Delivery: OA Delivery Details: Delivered over intact perineum via spontaneous vaginal delivery. Infant was placed on maternal abdomen.? Cord was clamped and cut after a 30-60 second delay. Nose and mouth were bulb suctioned.? weight pending. 1 Minute Interval Total Score: 8 5 Minute Interval Total Score: 9 Additional Details Shoulder Dystocia: No Placenta Delivery Time: 03:38 Placental Delivery Description: Spontaneous Procedure Done: Global Blood Loss: 100 Laceration: None Episiotomy Description: None Blood Loss Measurement Type: QBL Bakri Used: No Sponge/Need Count Correct: Yes Cord Vessel Description: 3 Vessels Event Summary Status: Mother and were stable after delivery. Disposition: floor
[2023-11-14] MEDS: IBUPROFEN 600 MG TABLET PO ×3 (06:55→20:20)
[2023-11-14] MEDS: DOCUSATE SODIUM 100 MG CAPSULE PO (09:01)
[2023-11-14] MEDS: ACETAMINOPHEN 500 MG TABLET 1000 MG PO ×3 (09:01→21:44)
--- NOTE | 2023-11-14 10:06 | PM.ANPOST ---
Post Anesthesia Note Post Anesthesia Note Patient seen: Inpatient Respiratory Status: adequate Cardiovascular Status: adequate Mental Status: baseline Pain: adequate Temp: baseline Anesthetic awareness: N/A Complications: none Follow care: none
--- OUTSIDE RECORDS SUMMARY | 2023-11-14 10:34 | XMS_ITS | Referral Summary ---
Author Organization [place] Address [facility] [place] [address] Care Team Providers Care Spring Intern Name Role Phone [facility]- Primary Care Provider Allergies No [...] Comments Blood Pressure 131/79 06/14/2022 11:54 AM IUSS MASTER ANALYST Pulse 102 06/14/2022 11:54 AM IUSS MASTER ANALYST Temperature 37.1 ??C (98.7 ??F) 06/14/2022 11:[address] Respiratory Rate 18 06/14/2022 11:54 AM IUSS MASTER ANALYST Oxygen Saturation 99% 08/13/2020 4:45 AM CDT Inhaled Oxygen Concentration - - Weight 87.1 kg (192 lb) 06/14/2022 11:54 AM IUSS MASTER ANALYST Height 165.1 cm (5' 5) 06/14/2022 11:54 AM IUSS MASTER ANALYST Body Mass Index 31.95 06/14/2022 11:54 AM IUSS MASTER ANALYST Plan of Treatment Not on file Care Teams Spring Intern Relationship Specialty Start Date End Date [facility]- [address] [place] [address] PCP - General 08/13/20
--- OUTSIDE RECORDS SUMMARY | 2023-11-14 10:34 | XMS_ITS | Clinical Summary ---
Author Organization [place] Address [facility] [place] [address] Care Team Providers Care Scouring Train Operator Chief Name Role Phone [facility]- Primary Care Provider Allergies No known [...] Comments Blood Pressure 131/79 06/14/2022 11:54 AM SENIOR BOILER OPERATOR Pulse 102 06/14/2022 11:54 AM SENIOR BOILER OPERATOR Temperature 37.1 ??C (98.7 ??F) 06/14/2022 11:[address] Respiratory Rate 18 06/14/2022 11:54 AM SENIOR BOILER OPERATOR Oxygen Saturation 99% 08/13/2020 4:45 AM CDT Inhaled Oxygen Concentration - - Weight 87.1 kg (192 lb) 06/14/2022 11:54 AM SENIOR BOILER OPERATOR Height 165.1 cm (5' 5) 06/14/2022 11:54 AM SENIOR BOILER OPERATOR Body Mass Index 31.95 06/14/2022 11:54 AM SENIOR BOILER OPERATOR Plan of Treatment Health Maintenance Due Date [...] age to complete this topic Care Teams Scouring Train Operator Chief Relationship Specialty Start Date End Date [facility]- [address] [place] [address] PCP - General 08/13/20
[2023-11-14] MEDS: OXYCODONE 5 MG TABLET PO (21:59)
[2023-11-15 00:12] VITALS: BP 129/83; PULSE 90; RESP 16; TEMP 36.6
[2023-11-15] MEDS: IBUPROFEN 600 MG TABLET PO ×2 (02:37→09:39)
[2023-11-15] MEDS: ACETAMINOPHEN 500 MG TABLET 1000 MG PO (04:22)
[2023-11-15 04:28] VITALS: BP 128/72; PULSE 84; RESP 16; TEMP 36.6; O2SAT 98
[2023-11-15 07:02] LABS: Hemoglobin* 11.2 gm/dL (12.0-16.0)
[2023-11-15 07:47] VITALS: BP 122/82; PULSE 72; RESP 16; TEMP 36.5; O2SAT 97
--- NOTE | 2023-11-15 08:23 | P.DS_ITS ---
DS: Providers Provider Date Seen: 11/15/23 Date of admission: 11/13/23 14:30 Primary care physician: Brandon Nj PA-C Admitting Clinician: Karie Castro MD Consults: 11/13/23 12:18 Consult to Diesel Engine Tester [CONS] Routine Comment: Reason for Consult:: Pulling Unit Floorhand Needed Attending Physician on discharge: Moiz Olivarez CNM Date of Discharge: 11/15/23 DS: Diagnosis Discharge Diagnosis (1) care and examination immediately after delivery: Status: Acute (2) Lactating mother: Status: Acute (3) Pre-eclampsia superimposed on chronic hypertension: Status: Acute (4) Chronic hypertension affecting : Status: Acute Problem details: With superimposed preeclampsia w/o severe features. Exam Narrative: Exam Narrative: VSS, afebrile GENERAL APPEARANCE: ?normal affect, alert, no distress MOOD: ?appropriate HEENT: normocephalic, neck supple, full ROM CHEST: ?Symmetrical chest wall movement. ?Normal respiratory effort. ?Clear to auscultation HEART: ?regular rate and rhythm ABDOMEN: ?soft, non-tender. Uterine fundus is firm, at Umbilicus, Midline and is appropriate for the stage of recovery. ?Bowel sounds present. PERINEUM: ?mild edema of the perineum EXTREMITIES: ?normal and no edema Const: Vital Signs, click to edit/add: Vital Signs - 24 hr 11/14/23 12:07 11/14/23 16:22 11/14/23 20:24 Temperature 98.2 F 98.2 F 97.9 F Pulse Rate [Pulse Oximeter] 69 82 91 Respiratory Rate 16 16 16 Blood Pressure [Le ft Arm] 119/77 139/80 125/80 Pulse Oximetry 97 97 98 Oxygen Delivery Me thod Room Air Room Air Room Air 11/15/23 00:12 11/15/23 04:28 11/15/23 07:47 Temperature 97.8 F 97.8 F 97.7 F Pulse Rate [Pulse Oximeter] 90 84 72 Respiratory Rate 16 16 16 Blood Pressure [Le ft Arm] 129/83 128/72 122/82 Pulse Oximetry 98 97 Oxygen Delivery Me thod Room Air Room Air Documenting provider has reviewed patient's vital signs: yes OB - DS: Summary Hospital Course Hospital Course: Candida is a 28 y.o. who was admitted to [facility] for inudction of labor. ?She had an uncomplicated NVD.?The patient feels well. ?The pain is well controlled with current medications. ?She has no new complaints. ?She is breast feeding and reports things are going well.? the patient has done well.? Vitals have been stable.? She has remained afebrile.? Has a good appetite, is tolerating a general diet. ?She is voiding without difficulty.? She is passing gas and has not had a bowel movement.? She is ambulating and denies any dizziness.? Has Small amount of rubra lochia. ?She is planning partner vasectomy for prevention. Peripartum Data Infant delivery method: Vaginal Laceration description: None complications: none Gender: Female Discharge Plan: Home Status at Discharge Functional status at discharge: independent ambulation Overall status at discharge: patient is progressing back to baseline Time Spent with Patient Time attestation: Total time spent providing and/or coordinating discharge services: Time spent: Less than 30 minutes Discharge Plan Discharge Disposition: Home, Self-Care Date of Admission: 11/13/23 14:30 Attending Provider on Discharge: Moiz Olivarez Primary Care Provider: Brandon Nj Condition: Stable Anticipated Discharge Date/Time: 11/15/23 12:00 Discharge Medications: New acetaminophen 500 mg Tablet 1,000 mg PO Q6H PRNQty: 0 0RF docusate sodium 100 mg Capsule 100 mg PO DAILY Qty: 90 2RF ibuprofen 600 mg Tablet 600 mg PO Q6H PRNQty: 60 0RF Continued calcium carbonate [Tums] 200 mg calcium (500 mg) tablet,chewable 200 mg PO BID PRN DHA 200 mg capsule 200 mg PO DAILY ferrous sulfate 325 mg (65 mg iron) tablet,delayed release (DR/EC) 325 mg PO Q OTHER DAY Qty: 30 0RF polyethylene glycol 3350 [Miralax] 17 gram/dose powder 4 g PO QDAY Qty: 119 0RF Discontinued aspirin 81 mg tablet,chewable 81 mg PO QDAY Qty: 90 0RF Discharge Orders: Discharge Order (Routine); Ordered 11/15/23 Ordered By: Moiz Olivarez Patient Education: OB Over the Counter Medication Information, OB Vaginal/Breast Feeding Additional Instructions: Discharge instructions were reviewed with the patient including signs and symptoms of infection and home going medications Nothing vaginally for 6 weeks: no tampons or intercourse Off Work or School for 6 weeks Follow [facility] for a BP check?11/15 or 11/17 Call with BP greater than or equal to 150/100 2-week visit: discuss infant feeding concerns, review control options and screen for anxiety/depression. 6-week visit for an annual exam. consultation services are available to all mothers and babies for the first year after delivery.? To make an appointment, please call [phone]. Activity Level: Activity as Tolerated Discharge Diet: Regular Follow Up Appointments: [facility] [Provider Group] Brandon Nj PA-C [Primary Care Provider] - Forms: Mobile2Me Info Instructions
[2023-11-15] MEDS: DOCUSATE SODIUM 100 MG CAPSULE PO (09:40)
[2023-11-15 11:25] VITALS: BP 129/80; PULSE 74; RESP 16; TEMP 36.8; O2SAT 97
[2023-11-16 00:50] LABS: Rapid Plasma Reagin (RPR) Non Reactive (Non Reactive)
== END 2023-11-15 15:40 | disposition home or self-care (01) | DRG 807 ==
LOC: OB OUT 15:08 → OB 15:35
PROVIDERS: Admitting Provider Obstetrics & Gynecology; PCP Physician Assistant Medical; Visit Provider Obstetrics & Gynecology
DX: O11.4 Pre-existing hypertension with pre-eclampsia, complicating childbirth (principal); Z37.0 Single live birth; O10.92 Unspecified pre-existing hypertension complicating childbirth; O99.214 Obesity complicating childbirth; E66.9 Obesity, unspecified; Z3A.37 37 weeks gestation of pregnancy
CPT/HCPCS: 01967; 36415; 82565; 82570; 84156; 84450; 84460; 84520; 85018; 85027; 86592; 86850; 86900; 86901; 88307; G0463; T1013; A9270; J0665; J2371; J2795; J7120

== ENCOUNTER 2023-11-28 11:21 | Outpatient (CLI) | payer MEDICAID, SELFPAY ==
--- OUTSIDE RECORDS SUMMARY | 2023-11-28 11:25 | XMS_ITS | Clinical Summary ---
Author Organization [place] Address [facility] [place] [address] Care Team Providers Care Director Medical Surgical Name Role Phone [facility]- Primary Care Provider Allergies No known [...] Comments Blood Pressure 131/79 06/14/2022 11:54 AM CRITICAL CARE PHYSICIAN ASSISTANT Pulse 102 06/14/2022 11:54 AM CRITICAL CARE PHYSICIAN ASSISTANT Temperature 37.1 ??C (98.7 ??F) 06/14/2022 11:[address] Respiratory Rate 18 06/14/2022 11:54 AM CRITICAL CARE PHYSICIAN ASSISTANT Oxygen Saturation 99% 08/13/2020 4:45 AM CDT Inhaled Oxygen Concentration - - Weight 87.1 kg (192 lb) 06/14/2022 11:54 AM CRITICAL CARE PHYSICIAN ASSISTANT Height 165.1 cm (5' 5) 06/14/2022 11:54 AM CRITICAL CARE PHYSICIAN ASSISTANT Body Mass Index 31.95 06/14/2022 11:54 AM CRITICAL CARE PHYSICIAN ASSISTANT Plan of Treatment Health Maintenance Due Date [...] age to complete this topic Care Teams Director Medical Surgical Relationship Specialty Start Date End Date [facility]- [address] [place] [address] PCP - General 08/13/20
--- OUTSIDE RECORDS SUMMARY | 2023-11-28 11:25 | XMS_ITS | Referral Summary ---
Author Organization [place] Address [facility] [place] [address] Care Team Providers Care Consumer Banker Name Role Phone [facility]- Primary Care Provider Allergies No known active [...] Comments Blood Pressure 131/79 06/14/2022 11:54 AM BOILER HOUSE OPERATOR Pulse 102 06/14/2022 11:54 AM BOILER HOUSE OPERATOR Temperature 37.1 ??C (98.7 ??F) 06/14/2022 11:[address] Respiratory Rate 18 06/14/2022 11:54 AM BOILER HOUSE OPERATOR Oxygen Saturation 99% 08/13/2020 4:45 AM CDT Inhaled Oxygen Concentration - - Weight 87.1 kg (192 lb) 06/14/2022 11:54 AM BOILER HOUSE OPERATOR Height 165.1 cm (5' 5) 06/14/2022 11:54 AM BOILER HOUSE OPERATOR Body Mass Index 31.95 06/14/2022 11:54 AM BOILER HOUSE OPERATOR Plan of Treatment Not on file Care Teams Consumer Banker Relationship Specialty Start Date End Date [facility]- [address] [place] [address] PCP - General 08/13/20
== END 2023-11-28 11:22 | disposition home or self-care (01) ==
PROVIDERS: PCP Physician Assistant Medical; Visit Provider Registered Nurse
DX: Z39.2 Encounter for routine postpartum follow-up (principal); I10 Essential (primary) hypertension
CPT/HCPCS: 82565; 84450; 84460; 84520; 84550